=== PATIENT | female | born 1995 | race Caucasian/White ===

== ENCOUNTER 2021-07-14 12:07 | Emergency (ER) | payer OTHER, SELFPAY ==
[2021-07-14 12:48] VITALS: BP 143/72; PULSE 65; RESP 16; TEMP 36.6; O2SAT 98; BMI 22.6
[2021-07-14 14:31] LABS: Add Manual Diff / Slide Review NO; Basophils Absolute Auto 0 /uL (0-100); Basophils Percent Auto 0.2 % (0-2); Eosinophils Absolute Auto 0 /uL (0-450); Eosinophils Percent Auto 0.1 % (2-4); Hematocrit 40.4 % (36-46); Hemoglobin 13.6 g/dL (12.0-16.0); Lymphocytes Absolute Auto 800 /uL (1100-4500); Lymphocytes Percent Auto 6.5 % (25-40); Mean Corpuscular HGB Conc 33.7 % (30-36); Mean Corpuscular Hemoglobin 31.9 PG (26-34); Mean Corpuscular Volume 94.6 fL (80-100); Monocytes Absolute Auto 200 /uL (0-900); Monocytes Percent Auto 1.7 % (3-14); Neutrophils Absolute Auto 12000 /uL (1500-7000); Neutrophils Percent Auto 91.5 % (50-75); Platelet Count 290 X10^3/uL (150-400); Red Blood Cell Count 4.27 X10^6/uL (4.0-5.2); Red Cell Distribution Width 13.5 % (11.6-14.8); White Blood Cell Count 13.1 X10^3/uL (4.5-11.0)
[2021-07-14 14:33] LABS: Alanine Aminotransferase 53 IU/L (<35); Albumin 4.7 g/dL (3.5-5.0); Albumin Globulin Ratio 1.9 (1.0-2.8); Alkaline Phosphatase 55 U/L (38-126); Aspartate Aminotransferase 26 IU/L (14-36); BUN Creatinine Ratio 20.7 (6-22); Bilirubin Total 0.2 mg/dL (0.2-1.3); Blood Urea Nitrogen 19 mg/dL (7-17); C-Reactive Protein Quant < 0.5 mg/dL (<1.0); Calcium 9.2 mg/dL (8.4-10.2); Carbon Dioxide 32 mmol/L (22-32); Chloride 100 mmol/L (98-107); Estimated Glomerular Filt Rate > 60 mL/min (>60); Globulin 2.5 g/dL (1.7-4.1); Glucose 142 mg/dL (70-100); HEMOLYSIS < 15 (0-50); Potassium 4.6 mmol/L (3.4-5.1); Sodium 138 mmol/L (137-145); Total Protein 7.2 g/dL (6.3-8.2)
--- NOTE | 2021-07-14 14:47 | PC.NURSE ---
Pt c/o L arm heaviness/pain that traveled to her R arm as well. Was started on a 5 day predisone taper which did not improve her discomfort. Pt then developed sore spots all over her body. Hx of leukemia.
[2021-07-14 14:49] LABS: Erythrocyte Sedimentation Rate 2 MM/HR (0-20)
--- NOTE | 2021-07-14 15:09 | ED_ITS ---
HPI - Neck Pain/Injury <Jamia Ang, [facility] - Last Filed: 07/14/21 16:54> General Chief Complaint: Neck Pain/Injury Stated Complaint: NECK PAIN TINGLING OF HAND AND ARMS TIRED Time Seen by Provider: 07/14/21 14:42 Mode of arrival: Ambulatory History of Present Illness HPI Narrative: This is a 26-year-old female who presents to the emergency department complaining of left-sided neck pain for the last 3 weeks, peripheral neuropathy in all of her extremities, fatigue, depressed mood, and difficulty completing simple tasks like cold in her cellphone. Patient states that she stop taking Latuda 2 months ago cold turkey because she ran out and did not have a prescriber. She states that she still is taking Prozac 20 mg daily, she states that she has been to would be emergency department 2 times for this neck pain starting approximately 2 weeks ago. Patient states that her left-sided neck pain started on 06/27/2021 with neuropathy symptoms down into her fingertips from her neck. She went to [facility], was prescribed steroids for 5 days, and oxycodone with muscle relaxers. She states that it did not help much, she went back to the emergency department approximately 1 week later, received a another prescription of steroids, muscle relaxers, and morphine tablets without any other testing completed. Patient states that she has had 2 urine test this week for and they were both negative. Patient endorses a headache, she states she has a history of leukemia as a child, has not had any fever, chills, diaphoresis, abdominal pain, states that she threw up yesterday a.m. but no other vomiting. States that she had a negative COVID test at home, she denies any diarrhea, rash isolated pain in 1 area. Patient states that she feels depressed, she has a psychiatrist appointment on for July 23, 2021. Patie nt states she does not want to start taking Latuda again because she did not think it helped her. Patient has been using lidocaine patches which she states are the most helpful, taking morphine tabs, muscle relaxers, and states none of those have helped at all. Patient denies any lower extremity weakness, incontinence, dizziness, vision changes. Related Data Previous Rx's Medication Instructions Recorded diclofenac sodium 1 % topical gel 2 g TOPICAL QID #100 g 07/14/21 (Voltaren Arthritis Pain) gabapentin 300 mg capsule 600 mg PO TID 14 Days #84 caplet 07/14/21 lidocaine 5 % topical patch 1 patch TOPICAL BID PRN #15 ea 07/14/21 (Lidoderm) methocarbamol 750 mg tablet 750 mg PO Q8H PRN #20 tab 07/14/21 tramadol 50 mg tablet (Ultram) 50 mg PO BID PRN #20 tab 07/14/21 Allergies Allergy/AdvReac Type Severity Reaction Status Date / Time Penicillins Allergy Verified 07/14/21 12:53 Sulfa (Sulfonamide Allergy Verified 07/14/21 12:53 Antibiotics) vancomycin AdvReac Redness of Verified 07/14/21 12:53 Skin Review of Systems <MAGI Orosco - Last Filed: 07/14/21 16:54> Review of Systems Narrative: General: denies fever, chills, malaise, sweats, endorses daily and crippling fatigue Head/Neck: denies headache, neck pain, dizziness Eyes: denies visual changes, eye pain Cardio: denies chest pain, palpitations, edema Respiratory: denies dyspnea, cough, orthopnea GI: denies abdominal pain, nausea, vomiting, or diarrhea : denies dysuria, hematuria, urinary retention, frequency or incontinence MSK: denies joint pain, muscle weakness Skin: denies rash, itching, skin lesions or other Neuro: denies numbness, tingling Patient History <MAGI Orosco - Last Filed: 07/14/21 16:54> Social History Smoking Status: Current every day smoker Smoking Status: Current every day smoker alcohol intake frequency: a few times a week Substance Use Type: does not use Exam <MAGI Orosco - Last Filed: 07/14/21 16:54> Narrative Exam Narrative: Independently reviewed vitals signs and nursing notes. General: cooperative, comfortable, in no acute distress, well developed and well groomed Head: atraumatic, symmetrical facial expressions Neck: supple, atraumatic, without lymphadenopathy. Patient has left trapezius muscle tension to palpation, no rash, no masses no tenderness over C-spine Eyes: pupils equal round and reactive, EOMI, conjunctiva normal Nose: nares patent, no rhinorrhea Mouth/Throat: uvula midline, moist mucus membranes Cardiovascular: regular rate and rhythm, no peripheral edema, warm extremities Respiratory: normal effort, able to speak in complete sentences, no audible wheezing, stridor, or rales. No retractions or tachypnea. GI: abdomen soft, nontender to palpation, nondistended, no masses, no exquisite tenderness with exam, without guarding or rebound. MSK: moves all extremities, ambulatory w/steady gait, neurovascularly intact, no weakness Skin: brisk capillary refill, no rash, no erythema Neuro: normal speech and cognition, A&O x3, normal tone Psych: mental status is grossly normal, congruent mood, normal affect, pleasant and cooperative Initial Vital Signs Initial Vital Signs: Vital Signs Temperature 98 F 07/14/21 12:48 Pulse Rate 65 07/14/21 12:48 Respiratory Rate 16 07/14/21 12:48 Blood Pressure 143/72 H 07/14/21 12:48 Pulse Oximetry 98 07/14/21 12:48 <Dina Rosa DO - Last Filed: 07/15/21 07:17> Initial Vital Signs Initial Vital Signs: Vital Signs Temperature 98 F 07/14/21 12:48 Pulse Rate 65 07/14/21 12:48 Respiratory Rate 16 07/14/21 12:48 Blood Pressure 143/72 H 07/14/21 12:48 Pulse Oximetry 98 07/14/21 12:48 Course <MAGI Orosco - Last Filed: 07/14/21 16:54> Orders Ordered: Discontinued Medications Acetaminophen (Acetaminophen 325 Mg Tablet) 975 mg PO NOW ONE Stop: 07/14/21 15:19 Last Admin: 07/14/21 15:36 Dose: 975 mg Documented by: JOSHUA Gabapentin (Gabapentin 300 Mg Capsule) 300 mg PO NOW ONE Stop: 07/14/21 15:19 Last Admin: 07/14/21 15:36 Dose: 300 mg Documented by: JOSHUA Ketorolac Tromethamine (Ketorolac 30 Mg/Ml Vial) 15 mg IM NOW ONE Stop: 07/14/21 16:31 Last Admin: 07/14/21 16:39 Dose: 15 mg Documented by: JOSHUA Lidocaine (Lidocaine Patch 1 Each Adh..Patch) 1 each TOP NOW ONE Stop: 07/14/21 15:19 Last Admin: 07/14/21 15:37 Dose: 1 each Documented by: JOSHUA Methocarbamol (Methocarbamol 500 Mg Tablet) 750 mg PO NOW ONE Stop: 07/14/21 16:31 Last Admin: 07/14/21 16:40 Dose: 750 mg Documented by: JOSHUA Oxycodone/Acetaminophen (Oxycodone/Acetaminophen 5/325 Tablet) 1 tab PO NOW ONE Stop: 07/14/21 16:32 Last Admin: 07/14/21 16:41 Dose: 1 tab Documented by: JOSHUA Vital Signs Vital signs: Vital Signs - 8 hr 07/14/21 12:48 Temperature 98 F Pulse Rate 65 Respiratory Rate 16 Blood Pressure 143/72 H Pulse Oximetry 98 <Dina Rosa DO - Last Filed: 07/15/21 07:17> Orders Ordered: Discontinued Medications Acetaminophen (Acetaminophen 325 Mg Tablet) 975 mg PO NOW ONE Stop: 07/14/21 15:19 Last Admin: 07/14/21 15:36 Dose: 975 mg Documented by: JOSHUA Gabapentin (Gabapentin 300 Mg Capsule) 300 mg PO NOW ONE Stop: 07/14/21 15:19 Last Admin: 07/14/21 15:36 Dose: 300 mg Documented by: JOSHUA Ketorolac Tromethamine (Ketorolac 30 Mg/Ml Vial) 15 mg IM NOW ONE Stop: 07/14/21 16:31 Last Admin: 07/14/21 16:39 Dose: 15 mg Documented by: JOSHUA Lidocaine (Lidocaine Patch 1 Each Adh..Patch) 1 each TOP NOW ONE Stop: 07/14/21 15:19 Last Admin: 07/14/21 15:37 Dose: 1 each Documented by: JOSHUA Methocarbamol (Methocarbamol 500 Mg Tablet) 750 mg PO NOW ONE Stop: 07/14/21 16:31 Last Admin: 07/14/21 16:40 Dose: 750 mg Documented by: JOSHUA Oxycodone/Acetaminophen (Oxycodone/Acetaminophen 5/325 Tablet) 1 tab PO NOW ONE Stop: 07/14/21 16:32 Last Admin: 07/14/21 16:41 Dose: 1 tab Documented by: JOSHUA Vital Signs Vital signs: Vital Signs - 8 hr 07/14/21 12:48 Temperature 98 F Pulse Rate 65 Respiratory Rate 16 Blood Pressure 143/72 H Pulse Oximetry 98 MDM - Neck Pain/Injury <MAGI Orosco - Last Filed: 07/14/21 16:54> Lab Data Result diagrams: 07/14/21 14:12 07/14/21 14:12 Labs: Lab Results 07/14/21 07/14/21 07/14/21 Range/Units 14:12 14:12 16:24 WBC 13.1 H (4.5-11.0) X10^3/uL RBC 4.27 (4.0-5.2) X10^6/uL Hgb 13.6 (12.0-16.0) g/dL Hct 40.4 (36-46) % MCV 94.6 (80-100) fL MCH 31.9 (26-34) PG MCHC 33.7 (30-36) % RDW 13.5 (11.6-14.8) % Plt Count 290 (150-400) X10^3/uL Neut % (Auto) 91.5 H (50-75) % Lymph % (Auto) 6.5 L (25-40) % [place] % (Auto) 1.7 L (3-14) % Eos % (Auto) 0.1 L (2-4) % Baso % (Auto) 0.2 (0-2) % Neut # (Auto) 96837 H (8450-0178) /uL Lymph # (Auto) 800 L (3434-5057) /uL [place] # (Auto) 200 (0-900) /uL Eos # (Auto) 0 (0-450) /uL Baso # (Auto) 0 (0-100) /uL ESR 2 (0-20) MM/HR Sodium 138 (137-145) mmol/L Potassium 4.6 (3.4-5.1) mmol/L Chloride 100 (98-107) mmol/L Carbon Dioxide 32 (22-32) mmol/L BUN 19 H (7-17) mg/dL Creatinine 0.92 (0.52-1.04) mg/dL Estimated GFR > 60 (>60) mL/min BUN/Creatinine Ratio 20.7 (6-22) Glucose 142 H (70-100) mg/dL Calcium 9.2 (8.4-10.2) mg/dL Total Bilirubin 0.2 (0.2-1.3) mg/dL AST 26 (14-36) IU/L ALT 53 H (<35) IU/L Alkaline Phosphatase 55 (38-126) U/L C-Reactive Protein < 0.5 (<1.0) mg/dL Total Protein 7.2 (6.3-8.2) g/dL Albumin 4.7 (3.5-5.0) g/dL Globulin 2.5 (1.7-4.1) g/dL Albumin/Globulin Ratio 1.9 (1.0-2.8) Urine Color Yellow Urine Appearance Cloudy Urine pH 7.5 (4.5-8.0) Ur Specific Nelson 1.015 (1.000-1.035) Urine Protein Negative (Negative) Urine Glucose (UA) Negative (Negative) g/dL Urine Ketones Negative (NEGATIVE) Urine Occult Blood Trace-lysed (Negative) Urine Nitrate Negative (Negative) Urine Bilirubin Negative (NEGATIVE) Urine Urobilinogen 0.2 (0.2) E.U./dL Ur Leukocyte Esterase Negative (NEGATIVE) Urine RBC 0-1/hpf (0-5/HPF) Urine WBC 0-1/hpf (0-5/HPF) Ur Squamous Epith Cells 0-1 /hpf (0-5/HPF) Amorphous Sediment 4+ Urine Bacteria None seen (None) Ur Culture Indicated? Culture not indicate Point of Care Testing Test Results Negative Urine Dip Bedside Urine Glucose Negative Bedside Urine Bilirubin - Negative Bedside Urine Ketone - Negative Urine Specific Nelson 1.010 Bedside Urine Occult Blood - Negative Bedside Urine pH 7.5 Bedside Urine Protein - Negative Bedside Urine Urobilinogen - Negative Bedside Urine Nitrite - Negative Bedside Urine Leukocytes - Negative Esterase Imaging Data CT scan - head: Radiologist's Impression: PROCEDURE:? CT HEAD/BRAIN WO CON ? INDICATIONS:? head and neck pain x3 weeks ? TECHNIQUE:? Noncontrast 4.5 mm thick angled axial sections acquired from the foramen magnum to the vertex, with coronal and sagittal reformats.? For radiation dose reduction, the following was used:? automated exposure control, adjustment of mA and/or kV according to patient size.? ? COMPARISON:? None. ? FINDINGS:? Image quality:? Excellent.? ? CSF spaces:? Basal cisterns are patent.? No extra-axial fluid collections.? Ventricles are normal in size and shape.? ? Brain:? No midline shift.? No intracranial masses or hemorrhage.? Norris-white matter interface is normal.? ? Skull and face:? Calvarium and visualized facial bones are intact, without suspicious lesions.? ? Sinuses:? Visualized sinuses and mastoids are clear.? ? IMPRESSION:? ? 1. No acute intracranial abnormalities. ? ? Dictated by: Suresh Boyd M.D. on 07/14/2021 at 14:58 ? ? Approved by: Suresh Boyd M.D. on 07/14/2021 at 14:59 ? CT - cervical spine: Radiologist's Impression: PROCEDURE:? CT CERVICAL SPINE WO CON ? INDICATIONS:? head and neck pain x3 weeks ? TECHNIQUE:? Noncontrast 3 mm thick sections acquired from the skull base to the T4 level.? Sagittal and coronal reformats were then constructed.? For radiation dose reduction, the following was used:? automated exposure control, adjustment of mA and/or kV according to patient size.? ? COMPARISON:? None. ? FINDINGS:? Image quality:? Excellent.? ? Bones:? No fractures or dislocations.? There is loss of normal cervical lordosis .? Visualized superior ribs are intact.? ? Soft tissues:? Prevertebral soft tissues are normal in thickness.? No paravertebral hematomas.? No apical pneumothoraces.? ? ? IMPRESSION:? Loss of normal cervical lordosis.? No fracture. ? ? Dictated by: Suresh Boyd M.D. on 07/14/2021 at 15:00 ? ? Approved by: Suresh Boyd M.D. on 07/14/2021 at 15:05 ? MDM Narrative Medical decision making narrative: This is a 26-year-old female with 5 children, history of anxiety, depression, pancreatitis, and leukemia who presents to the emergency department complaining of 3 weeks of left-sided neck pain, neuropathy, fatigue, multiple locations of pain, and has tried opiates, muscle relaxers, lidocaine patches, incident Tylenol and states none of that was very helpful. Patient endorses lidocaine patches as being the most helpful. She states she stopped taking Latuda cold turkey 2 months ago, she is on 20 mg of Prozac daily, has been using all these medications for this neck pain and neuropathy without any improvement in her symptoms. She has been afebrile, completed 2 courses of steroids, this is likely contributing to her mild leukocytosis of 13.1. CRP and ESR were not elevated, patient states that lidocaine patches were the most helpful in she already has opiates and muscle relaxers at home but when she was offered Tylenol, gabapentin, and a lidocaine patch in the emergency department she declined and states that we are not doing anything for her. Or there was a mutual decision making between patient and myself to start her on gabapentin until she sees her psychiatrist in 9 days to help treat her for her likely fibromyalgia symptoms. Opted to rule out tumor or fracture with a CT brain/head/C-spine. CT head shows no acute intracranial abnormality, CT C-spine shows loss of cervical lordosis without any stenosis or acute abnormality. is negative, CRP ESR are not elevated. UA shows a trace of blood, pat ient states she is on her menses. No leukocytes, bacteria, or nitrites. Discussion patient her symptoms, she states that she is out muscle relaxers, states that the morphine was too strong for her, she had some relief from lidocaine patches a little from oxycodone. She was given Toradol, methocarb jarett, Percocet, lidocaine patch for her pain today. She requested a prescription for something less strong and was given tramadol, gabapentin, lidocaine patches, Voltaren gel, and Robaxin. Encourage patient to stay active, use the medications as needed, in addition to Tylenol and ibuprofen, heat and ice is safe, if she develops any worsening of her symptoms, weakness, vision changes, inability to turn her head, to return to the emergency department for another evaluation. Headache considerations include, but not limited to: Subarachnoid hemorrhage, but unlikely as patient denies sudden onset of pain, not worst of life, or neck pain, CT ruled this out. Meningitis considered, but thought unlikely given lack of Brudzinski's, Kernig's sign, altered mental status or fever. Giant cell arteritis considered, but thought unlikely given lack of unilateral findings, pain in jehovah's witness, vision change HTN Emergency considered, but thought unlikely given normal vitals Other serious diagnoses considered unlikely given lack of red flag findings such as sudden onset, increasing frequency, immunocompromise, systemic signs (fever, chills, stiff neck, or rash), focal neurologic findings, trauma, blood thinners, etc. Patient is appropriate and amenable to discharge home. Vital signs are stable on repeat examination is unremarkable. Patient has been informed of results. Patient has been given strict return to ER precautions for any new or worsening symptoms. Patient understands to follow up closely with outpatient providers as instructed. Patient understands plan and agrees to discharge home. All questions and concerns answered at this time. <Dina Rosa DO - Last Filed: 07/15/21 07:17> Lab Data Labs: Lab Results 07/14/21 07/14/21 07/14/21 Range/Units 14:12 14:12 16:24 WBC 13.1 H (4.5-11.0) X10^3/uL RBC 4.27 (4.0-5.2) X10^6/uL Hgb 13.6 (12.0-16.0) g/dL Hct 40.4 (36-46) % MCV 94.6 (80-100) fL MCH 31.9 (26-34) PG MCHC 33.7 (30-36) % RDW 13.5 (11.6-14.8) % Plt Count 290 (150-400) X10^3/uL Neut % (Auto) 91.5 H (50-75) % Lymph % (Auto) 6.5 L (25-40) % [place] % (Auto) 1.7 L (3-14) % Eos % (Auto) 0.1 L (2-4) % Baso % (Auto) 0.2 (0-2) % Neut # (Auto) 37455 H (0631-2178) /uL Lymph # (Auto) 800 L (9053-9077) /uL [place] # (Auto) 200 (0-900) /uL Eos # (Auto) 0 (0-450) /uL Baso # (Auto) 0 (0-100) /uL ESR 2 (0-20) MM/HR Sodium 138 (137-145) mmol/L Potassium 4.6 (3.4-5.1) mmol/L Chloride 100 (98-107) mmol/L Carbon Dioxide 32 (22-32) mmol/L BUN 19 H (7-17) mg/dL Creatinine 0.92 (0.52-1.04) mg/dL Estimated GFR > 60 (>60) mL/min BUN/Creatinine Ratio 20.7 (6-22) Glucose 142 H (70-100) mg/dL Calcium 9.2 (8.4-10.2) mg/dL Total Bilirubin 0.2 (0.2-1.3) mg/dL AST 26 (14-36) IU/L ALT 53 H (<35) IU/L Alkaline Phosphatase 55 (38-126) U/L C-Reactive Protein < 0.5 (<1.0) mg/dL Total Protein 7.2 (6.3-8.2) g/dL Albumin 4.7 (3.5-5.0) g/dL Globulin 2.5 (1.7-4.1) g/dL Albumin/Globulin Ratio 1.9 (1.0-2.8) Urine Color Yellow Urine Appearance Cloudy Urine pH 7.5 (4.5-8.0) Ur Specific [place] 1.015 (1.000-1.035) Urine Protein Negative (Negative) Urine Glucose (UA) Negative (Negative) g/dL Urine Ketones Negative (NEGATIVE) Urine Occult Blood Trace-lysed (Negative) Urine Nitrate Negative (Negative) Urine Bilirubin Negative (NEGATIVE) Urine Urobilinogen 0.2 (0.2) E.U./dL Ur Leukocyte Esterase Negative (NEGATIVE) Urine RBC 0-1/hpf (0-5/HPF) Urine WBC 0-1/hpf (0-5/HPF) Ur Squamous Epith Cells 0-1 /hpf (0-5/HPF) Amorphous Sediment 4+ Urine Bacteria None seen (None) Ur Culture Indicated? Culture not indicate Point of Care Testing Test Results Negative Urine Dip Bedside Urine Glucose Negative Bedside Urine Bilirubin - Negative Bedside Urine Ketone - Negative Urine Specific [place] 1.010 Bedside Urine Occult Blood - Negative Bedside Urine pH 7.5 Bedside Urine Protein - Negative Bedside Urine Urobilinogen - Negative Bedside Urine Nitrite - Negative Bedside Urine Leukocytes - Negative Esterase Discharge Plan Departure Patient Disposition: Home Clinical Impression: Acute neck pain, Fatigue Peripheral neuropathy Qualifiers: Peripheral neuropathy type: polyneuropathy, unspecified Qualified Code(s): G62.9 - Polyneuropathy, unspecified Instructions: Fibromyalgia (Alternative Therapy), Complex Regional Pain Syndrome, DI for Neck Pain Activity Restrictions/Additional Instructions: *You have been diagnosed with pain in multiple locations, fatigue, insomnia, cognitive dysfunction, and peripheral neuropathy. These are all symptoms of fibromyalgia which is stemming from undertreated neurochemicals your brain. This is treated with multi modalities including SSRIs, complementary therapies like exercise, yoga, acupuncture, talk therapy, and first line medications include prozac and gabapentin if not improved on prozac. Your CT brain shows no acute intracranial abnormality, your CT of your cervical spine shows loss of normal cervical curvature but no fracture, stenosis, masses, and soft tissues are all normal without suspicion for abnormality. Great news! Please see how the gabapentin helps your pain, there are other interventions like cognitive behavioral therapy, other oral medications which may work for you, and there is no evidence that opioids are effective treatment of this. Evidence suggests that opiates have adverse effects on chronic pain syndromes. Please try and stay active as your body allows, this will help release Endocannabinoids which will treat your pain from your brain. I wish you the best, please go to your appointment on July 23, follow-up with your primary care provider for a referral to physical therapy and /or advanced imaging if you continue to have symptoms. Please follow-up with a specialist before changing medications or stopping them altogether. Please continue taking the Prozac as you are, take ibuprofen or Tylenol with food and water as needed for your pain, muscle relaxers as necessary for muscle spasms. Please use heat, light activity , stay hydrated, eat food with ibuprofen so that you do not get an ulcer. I wish you the best with your follow-up. *What to do: *Please continue to take your regular medications as directed. [ x] New medication prescriptions sent to your pharmacy: [ [facility]] [ ] New medication written as a paper prescription [ ] No new medications given *Please follow up with your primary care provider in 2-3 days, call for an appointment. Let them know you were seen in the Emergency Department and that we asked that you be seen for follow-up. We will electronically transmit a record of today's note if your PCP is in our system *If you do not have a primary care provider please contact [phone] to establish care with one of the [facility] primary care providers. *Return to Emergency Department if you should have any new, worsening or concerning symptoms, such as [fever greater than 101F, chills, worsening pain, persistent vomiting or other bothersome symptoms] Prescriptions: New gabapentin 300 mg capsule 600 mg PO TID 14 Days Qty: 84 0RF diclofenac sodium [Voltaren Arthritis Pain] 1 % gel 2 g topical QID Qty: 100 0RF Rx Instructions: apply to single elbow, wrist or hand; for hand includes palm/fingers/back of hand lidocaine [Lidoderm] 5 % adhesive patch,medicated 1 patch topical BID PRN (Reason: pain) Qty: 15 0RF Rx Instructions: leave on most painful area for up to 12 hrs tramadol [Ultram] 50 mg tablet 50 mg PO BID PRN (Reason: pain) Qty: 20 0RF methocarbamol 750 mg tablet 750 mg PO Q8H PRN (Reason: muscle spasm, insomnia) Qty: 20 0RF Referrals: Lazaro Martin MD [Physician] - <Dina Rosa DO - Last Filed: 07/15/21 07:17> Cosign ED Attending Jazature Attestation: I was immediately available in the department for consultation. Documentation has been reviewed. I agree with assessment and plan.
--- NOTE | 2021-07-14 15:33 | DI.CT.S_ITS ---
PROCEDURE: CT HEAD/BRAIN WO CON INDICATIONS: head and neck pain x3 weeks TECHNIQUE: Noncontrast 4.5 mm thick angled axial sections acquired from the foramen magnum to the vertex, with coronal and sagittal reformats. For radiation dose reduction, the following was used: automated exposure control, adjustment of mA and/or kV according to patient size. COMPARISON: None. FINDINGS: Image quality: Excellent. CSF spaces: Basal cisterns are patent. No extra-axial fluid collections. Ventricles are normal in size and shape. Brain: No midline shift. No intracranial masses or hemorrhage. Norris-white matter interface is normal. Skull and face: Calvarium and visualized facial bones are intact, without suspicious lesions. Sinuses: Visualized sinuses and mastoids are clear. IMPRESSION: 1. No acute intracranial abnormalities. Dictated by: Suresh Boyd M.D. on 07/14/2021 at 14:58 Approved by: Suresh Boyd M.D. on 07/14/2021 at 14:59
--- NOTE | 2021-07-14 15:33 | DI.CT.S_ITS ---
PROCEDURE: CT CERVICAL SPINE WO CON INDICATIONS: head and neck pain x3 weeks TECHNIQUE: Noncontrast 3 mm thick sections acquired from the skull base to the T4 level. Sagittal and coronal reformats were then constructed. For radiation dose reduction, the following was used: automated exposure control, adjustment of mA and/or kV according to patient size. COMPARISON: None. FINDINGS: Image quality: Excellent. Bones: No fractures or dislocations. There is loss of normal cervical lordosis. Visualized superior ribs are intact. Soft tissues: Prevertebral soft tissues are normal in thickness. No paravertebral hematomas. No apical pneumothoraces. IMPRESSION: Loss of normal cervical lordosis. No fracture. Dictated by: Suresh Boyd M.D. on 07/14/2021 at 15:00 Approved by: Suresh Boyd M.D. on 07/14/2021 at 15:05
[2021-07-14] MEDS: ACETAMINOPHEN 325 MG TABLET 975 MG PO (15:36)
[2021-07-14] MEDS: GABAPENTIN 300 MG CAPSULE PO (15:36)
[2021-07-14] MEDS: LIDOCAINE PATCH 1 EACH ADH..PATCH TOP (15:37)
--- NOTE | 2021-07-14 15:40 | PC.NURSE ---
Pt offered lidocaine patch, tylenol, and gabapentin per order; pt expressed dismay that she's tried these medications and is still having severe pain all over. Care discussed with CLIENT TECHNOLOGIES ANALYST Crew; CT head and neck ordered. Pt updated to plan of care, declined to rate her pain on pain scale. Pt took her medications and applied lidocaine patch to neck before ambulating to CT.
[2021-07-14 16:26] LABS: Appearance Urine UA CLOUDY; Bilirubin Urine UA NEGATIVE (NEGATIVE); Color Urine UA YELLOW; Glucose Urine UA NEGATIVE (Negative); Ketones Urine UA NEGATIVE (NEGATIVE); Leukocyte Esterase Urine UA NEGATIVE (NEGATIVE); Nitrite Urine UA NEGATIVE (Negative); Occult Blood Urine UA TRACE-LYSED (Negative); Protein Urine UA NEGATIVE (Negative); Specific Gravity Urine UA 1.015 (1.000-1.035); Urobilinogen Urine UA 0.2 E.U./dL (0.2)
[2021-07-14] MEDS: KETOROLAC 30 MG/ML VIAL 15 MG IM (16:39)
[2021-07-14] MEDS: methocarbamoL 500 MG TABLET 750 MG PO (16:40)
[2021-07-14] MEDS: OXYCODONE/ACETAMINOPHEN 5/325 TABLET 1 TAB PO (16:41)
[2021-07-14 16:51] LABS: pH Urine UA 7.5 (4.5-8.0)
[2021-07-14 16:52] VITALS: BP 116/59; PULSE 65; RESP 16; TEMP 37.1; O2SAT 96
[2021-07-14 16:53] LABS: Amorphous Sediment Urine 4+; Bacteria Urine None Seen; RBC Urine 0-1/HPF (0-5/HPF); Squamous Epithelial Cell Urine 0-1 /HPF (0-5/HPF); WBC Urine 0-1/HPF (0-5/HPF)
== END 2021-07-14 16:54 | disposition home or self-care (01) ==
PROVIDERS: Emergency Medicine; Emergency Provider Nurse Practitioner Critical Care Medicine
DX: M54.2 Cervicalgia (principal); G62.9 Polyneuropathy, unspecified; R53.83 Other fatigue
CPT/HCPCS: 70450; 72125; 80053; 81001; 81003; 81025; 85025; 85651; 86140; 87086; 96372; 99284; J1885

== ENCOUNTER 2022-04-12 17:42 | Emergency (ER) | payer OTHER, SELFPAY ==
--- NOTE | 2022-04-12 | DI.US.S_ITS ---
PROCEDURE: US ABDOMEN LIMITED INDICATIONS: SEVERE RUQ AND EPIGASTRIC PAIN TECHNIQUE: Real-time focused scanning was performed of the abdomen, with image documentation. COMPARISON: None. FINDINGS: No gallstones, gallbladder wall thickening, sonographic Lopez sign. Liver length of 13.5 cm. Unremarkable hepatic echotexture. No biliary ductal dilation. Visualized pancreas is unremarkable. Main portal vein patent with antegrade flow. Visualized IVC is patent. IMPRESSION: No gallstones or evidence of acute cholecystitis Dictated by: Octavio Faust M.D. on 04/12/2022 at 19:37 Approved by: Octavio Faust M.D. on 04/12/2022 at 19:38
[2022-04-12 17:50] VITALS: BP 140/73; PULSE 95; RESP 22; TEMP 37.5; O2SAT 100; BMI 24.2
[2022-04-12 18:11] LABS: Add Manual Diff / Slide Review NO; Basophils Absolute Auto 100 /uL (0-100); Basophils Percent Auto 0.8 % (0-2); Eosinophils Absolute Auto 1300 /uL (0-450); Eosinophils Percent Auto 15.9 % (2-4); Hematocrit 38.4 % (36-46); Hemoglobin 13.2 g/dL (12.0-16.0); Lymphocytes Absolute Auto 2400 /uL (1100-4500); Lymphocytes Percent Auto 29.4 % (25-40); Mean Corpuscular HGB Conc 34.3 % (30-36); Mean Corpuscular Hemoglobin 32.2 PG (26-34); Monocytes Absolute Auto 500 /uL (0-900); Monocytes Percent Auto 6.3 % (3-14); Neutrophils Absolute Auto 3900 /uL (1500-7000); Neutrophils Percent Auto 47.6 % (50-75); Platelet Count 237 X10^3/uL (150-400); Red Blood Cell Count 4.08 X10^6/uL (4.0-5.2); Red Cell Distribution Width 13.5 % (11.6-14.8); White Blood Cell Count 8.1 X10^3/uL (4.5-11.0)
[2022-04-12 18:21] LABS: Alanine Aminotransferase 21 IU/L (<35); Albumin 4.6 g/dL (3.5-5.0); Albumin Globulin Ratio 1.8 (1.0-2.8); Alkaline Phosphatase 47 U/L (38-126); Aspartate Aminotransferase 24 IU/L (14-36); BUN Creatinine Ratio 13.3 (6-22); Bilirubin Total 0.6 mg/dL (0.2-1.3); Blood Urea Nitrogen 10 mg/dL (7-17); Calcium 9.3 mg/dL (8.4-10.2); Carbon Dioxide 29 mmol/L (22-32); Chloride 100 mmol/L (98-107); Estimated Glomerular Filt Rate > 60 mL/min (>60); Globulin 2.6 g/dL (1.7-4.1); Glucose 99 mg/dL (70-100); HEMOLYSIS < 15 (0-50); Lipase 29 U/L (23-300); Potassium 3.6 mmol/L (3.4-5.1); Sodium 140 mmol/L (137-145); Total Protein 7.2 g/dL (6.3-8.2)
[2022-04-12] MEDS: SODIUM CHLORIDE 0.9% 1,000 ML 1000 ML IV (18:53)
[2022-04-12] MEDS: HYDROMORPHONE 0.5 MG INJ IV ×2 (18:53→20:20)
[2022-04-12] MEDS: ONDANSETRON 4 MG/2 ML INJ IV (18:55)
--- NOTE | 2022-04-12 18:59 | PC.NURSE ---
patient reports had a BM with mucous yesterday. Reports most bowel movements have been watery diarrhea with very little stool and highlighter yellow
--- NOTE | 2022-04-12 19:10 | ED_ITS ---
HPI - Abdominal Pain General Chief Complaint: Abdominal Pain Stated Complaint: Rt. side abd. pain/rib cage to back diarrhea Time Seen by Provider: 04/12/22 18:16 Source: patient Mode of arrival: Ambulatory History of Present Illness HPI narrative: 27-year-old female nonsmoker with history of ALL and pancreatitis presents with a chief complaint of severe epigastric and right-sided upper abdominal pain and rib pain that has been present since the week of March but gradually worsening. She denies any trauma or injury. She is had no fever but does admit to chills. She states the pain is worse when she moves, eats or takes a deep breath. She states she is not actually short of breath it just hurts when she moves or takes a deep breath. She is had no cough or hemoptysis. She states that she had been seen evaluated at an outside facility a few weeks ago and had a CT that showed no significant findings, however at the time she was having more lower abdominal pain. Records have been requested. Related Data Previous Rx's Medication Instructions Recorded hydrocodone 5 mg-acetaminophen 325 1 tab PO Q4-6H PRN pain #20 tabs 04/12/22 mg tablet hyoscyamine sulfate 0.125 mg tablet 0.125 mg PO BID-QID PRN dyspepsia 04/12/22 #20 tabs Allergies Allergy/AdvReac Type Severity Reaction Status Date / Time Penicillins Allergy Unknown Verified 04/12/22 17:57 Sulfa (Sulfonamide Allergy Unknown Verified 04/12/22 17:57 Antibiotics) vancomycin Allergy Unknown Verified 04/12/22 17:57 Review of Systems Review of Systems Narrative: GENERAL: See HPI HEENT: Denies sinus pain, ear pain, sore throat, difficulty swallowing, dizziness. RESPIRATORY: See HPI CARDIOVASCULAR: See HPI GASTROINTESTINAL: See HPI : Denies dysuria, frequency, incontinence, hematuria, urinary retention. MUSCULOSKELETAL: denies weakness, joint pain, or bony pain SKIN: Denies rash, skin lesions, or other NEUROLOGIC: Denies weakness, headache, numbness, change in speech, confusion, seizures, incoordination. PSYCHIATRIC: No concerning psychosocial issues. 12 point review of systems is negative except for those stated above Patient History Social History Smoking Status: Never smoker Smoking Status: Never smoker Substance Use Type: does not use Exam Narrative Exam Narrative: GENERAL: [27] year old patient appears stated age. Well-developed patient, in mild distress. Tearful, clearly uncomfortable, anxious HEAD: Atraumatic. Normocephalic. EYES: Pupils equal round and reactive. Extraocular motions intact. No scleral icterus. No injection or drainage. ENT: Nose without bleeding, purulent drainage. Throat without erythema, tonsil lar hypertrophy or exudate. Airway patent. NECK: Trachea midline. Non tender CARDIOVASCULAR: Regular rate and rhythm without murmurs, gallops, or rubs. RESPIRATORY: Clear to auscultation. Breath sounds equal bilaterally. No wheezes, rales, or rhonchi. GASTROINTESTINAL: Abdomen soft, non-tender, nondistended. EXTREMITIES: No edema or joint tenderness. BACK: Nontender without deformity or crepitance. No flank tenderness. NEURO: AOx3. SKIN: No rash or erythema of visible areas Initial Vital Signs Initial Vital Signs: Vital Signs Temperature 99.5 F 04/12/22 17:50 Pulse Rate 95 H 04/12/22 17:50 Respiratory Rate 22 04/12/22 17:50 Blood Pressure 140/73 04/12/22 17:50 Pulse Oximetry 100 04/12/22 17:50 Oxygen Delivery Method 04/12/22 17:50 Course Orders Ordered: ED Orders 04/12/22 19:13 CT abdomen pelvis w con Stat CT angio chest PE protocol Stat Discontinued Medications Hydrocodone Bitart/Acetaminophen (Hydrocodone/Acet 5/325 Prepack) 1 bottle MISC SEEINSTR ONE Stop: 04/12/22 21:22 Last Admin: 04/12/22 21:35 Dose: 1 bottle Documented By: OW Hydromorphone HCl (Hydromorphone 0.5 Mg Inj) 0.5 mg IV NOW ONE Stop: 04/12/22 18:25 Last Admin: 04/12/22 18:53 Dose: 0.5 mg Documented By: FLAmanda Hydromorphone HCl (Hydromorphone 0.5 Mg Inj) 0.5 mg IV NOW ONE Stop: 04/12/22 20:14 Last Admin: 04/12/22 20:20 Dose: 0.5 mg Documented By: AP Sodium Chloride (Normal Saline 0.9%) 1,000 mls @ 1,000 mls/hr IV BOLUS ONE Stop: 04/12/22 19:23 Last Infusion: 04/12/22 19:50 Dose: 0 mls/hr Documented By: Admin: 04/12/22 18:53 Dose: 1,000 mls/hr Documented By: BHAKTI Ondansetron HCl (Ondansetron 4 Mg/2 Ml Inj) 4 mg IV NOW PRN PRN Reason: Nausea And Vomiting Ondansetron HCl (Ondansetron 4 Mg/2 Ml Inj) 4 mg IV NOW ONE Stop: 04/12/22 18:25 Last Admin: 04/12/22 18:55 Dose: 4 mg Documented By: BHAKTI Reevaluation(s) Reevaluation #1: Significantly improved discomfort after above-stated therapies Vital Signs Vital signs: Vital Signs - 8 hr 04/12/22 20:01 Pulse Rate 61 Respiratory Rate 20 Blood Pressure 111/68 Pulse Oximetry 97 Oxygen Delivery Method Room Air MDM - Abdominal Pain Lab Data 04/12/22 18:03 04/12/22 18:03 Labs: Lab Results 04/12/22 04/12/22 04/12/22 Range/Units 18:03 18:03 18:03 WBC 8.1 (4.5-11.0) X10^3/uL RBC 4.08 (4.0-5.2) X10^6/uL Hgb 13.2 (12.0-16.0) g/dL Hct 38.4 (36-46) % MCV 94.0 (80-100) fL MCH 32.2 (26-34) PG MCHC 34.3 (30-36) % RDW 13.5 (11.6-14.8) % Plt Count 237 (150-400) X10^3/uL Neut % (Auto) 47.6 L (50-75) % Lymph % (Auto) 29.4 (25-40) % [place] % (Auto) 6.3 (3-14) % Eos % (Auto) 15.9 H (2-4) % Baso % (Auto) 0.8 (0-2) % Neut # (Auto) 3900 (3133-9793) /uL Lymph # (Auto) 2400 (6957-4670) /uL [place] # (Auto) 500 (0-900) /uL Eos # (Auto) 1300 H (0-450) /uL Baso # (Auto) 100 (0-100) /uL D-Dimer < 215 (<500) ng/ml Sodium 140 (137-145) mmol/L Potassium 3.6 (3.4-5.1) mmol/L Chloride 100 (98-107) mmol/L Carbon Dioxide 29 (22-32) mmol/L BUN 10 (7-17) mg/dL Creatinine 0.75 (0.52-1.04) mg/dL Estimated GFR > 60 (>60) mL/min BUN/Creatinine Ratio 13.3 (6-22) Glucose 99 (70-100) mg/dL Calcium 9.3 (8.4-10.2) mg/dL Total Bilirubin 0.6 (0.2-1.3) mg/dL AST 24 (14-36) IU/L ALT 21 (<35) IU/L Alkaline Phosphatase 47 (38-126) U/L Total Creatine Kinase (30-135) U/L CK-MB (CK-2) CK-MB (CK-2) Rel Index Troponin I (0.01-0.034) ng/mL NT-Pro-B Natriuret Pep (<125) pg/mL Total Protein 7.2 (6.3-8.2) g/dL Albumin 4.6 (3.5-5.0) g/dL Globulin 2.6 (1.7-4.1) g/dL Albumin/Globulin Ratio 1.8 (1.0-2.8) Lipase 29 (23-300) U/L Procalcitonin (<0.5) ng/mL Serum , Qual (Negative) 04/12/22 04/12/22 Range/Units 18:03 18:05 WBC (4.5-11.0) X10^3/uL RBC (4.0-5.2) X10^6/uL Hgb (12.0-16.0) g/dL Hct (36-46) % MCV (80-100) fL MCH (26-34) PG MCHC (30-36) % RDW (11.6-14.8) % Plt Count (150-400) X10^3/uL Neut % (Auto) (50-75) % Lymph % (Auto) (25-40) % [place] % (Auto) (3-14) % Eos % (Auto) (2-4) % Baso % (Auto) (0-2) % Neut # (Auto) (0289-8192) /uL Lymph # (Auto) (1743-8029) /uL [place] # (Auto) (0-900) /uL Eos # (Auto) (0-450) /uL Baso # (Auto) (0-100) /uL D-Dimer (<500) ng/ml Sodium (137-145) mmol/L Potassium (3.4-5.1) mmol/L Chloride (98-107) mmol/L Carbon Dioxide (22-32) mmol/L BUN (7-17) mg/dL Creatinine (0.52-1.04) mg/dL Estimated GFR (>60) mL/min BUN/Creatinine Ratio (6-22) Glucose (70-100) mg/dL Calcium (8.4-10.2) mg/dL Total Bilirubin (0.2-1.3) mg/dL AST (14-36) IU/L ALT (<35) IU/L Alkaline Phosphatase (38-126) U/L Total Creatine Kinase 62 (30-135) U/L CK-MB (CK-2) TNP CK-MB (CK-2) Rel Index TNP Troponin I < 0.012 (0.01-0.034) ng/mL NT-Pro-B Natriuret Pep 28 (<125) pg/mL Total Protein (6.3-8.2) g/dL Albumin (3.5-5.0) g/dL Globulin (1.7-4.1) g/dL Albumin/Globulin Ratio (1.0-2.8) Lipase (23-300) U/L Procalcitonin < 0.03 (<0.5) ng/mL Serum , Qual Negative (Negative) Point of care testing: Point of Care Testing Test Results Negative Urine Dip Bedside Urine Glucose Negative Bedside Urine Bilirubin - Negative Bedside Urine Ketone - Negative Urine Specific [place] 1.010 Bedside Urine Occult Blood - Negative Bedside Urine pH 6.5 Bedside Urine Protein - Negative Bedside Urine Urobilinogen - Negative Bedside Urine Nitrite - Negative Bedside Urine Leukocytes - Negative Esterase Imaging Data CT scan - chest: Radiologist's Impression: [address] [address] [address] Scan Report Signed Patient: Jose Khan MR#: [id number] : 1995 Acct:[id number] Age/Sex: 27 / F Date of Service: 04/12/22 Loc: ED Accession Number: [id number] ?? Procedure: CT angio chest PE protocol Ordering Provider: Sam Ricardo D.O. PROCEDURE:? CT ANGIO CHEST PE PROTOCOL ? INDICATIONS:? Shortness of breath, R side CP, hx ALL ? TECHNIQUE:? After the administration of intravenous contrast, 2 mm thick sections acquired from the pulmonary apices to the posterior costophrenic angles.? 3-dimensional maximum intensity projection (MIP) coronal and sagittal reformats were then acquired through the thorax.? For radiation dose reduction, the following was used:? automated exposure control, adjustment of mA and/or kV according to patient size.? ? COMPARISON:? None. ? FINDINGS:? Image quality:? Excellent.? ? Pulmonary arteries:? Pulmonary arteries are normal in size, and demonstrate no intraluminal filling defects to suggest central pulmonary embolism.? ? Lungs and pleura:? No consolidation, pleural effusion, pneumothorax.? Mild bronchial wall thickening present.? Nonspecific nodular foci within the trachea and right mainstem bronchus, probable airway secretions ? Mediastinum:? no? pericardial effusion.? No mediastinal or hilar adenopathy.? Thoracic aorta is normal in caliber and enhancement.? Esophagus is normal in caliber ? Bones and chest wall:? Multilevel degenerative change of the visualized spine.? No axillary or supraclavicular adenopathy.? ? Abdomen:? Visualized upper abdominal solid organs appear normal in the early arterial phase of enhancement.? ? IMPRESSION: No pulmonary embolism demonstrated. Bronchial wall thickening is present, nonspecific, could indicate a bronchitis. ? ? Dictated by: Octavio Faust M.D. on 04/12/2022 at 20:43 ? ? Approved by: Octavio Faust M.D. on 04/12/2022 at 20:54 ? CT scan - abdomen/pelvis: Radiologist's Impression: Jose Khan??27??F??1995 ? Allergy/Adv: Penicillins, Sulfa (Sulfonamide Antibiotics), vancomycin (More??) Close Chest CTA (Signed) Octavio Faust - 04/12/22 Abdomen/Pelvis CT (Signed) Octavio Faust - 04/12/22 Abdomen Ultrasound (Signed) Octavio Faust - 04/12/22 Launch?Image [address] [address] [address] Scan Report Signed Patient: Jose Khan MR#: [id number] : 1995 Acct:[id number] Age/Sex: 27 / F Date of Service: 04/12/22 Loc: ED Accession Number: [id number] ?? Procedure: CT abdomen pelvis w con Ordering Provider: Sam Ricardo D.O. PROCEDURE:? CT ABDOMEN PELVIS W CON ? INDICATIONS:? severe R sided and epigastric pain, R side Rib pain, no trau ? TECHNIQUE:? After the administration of intravenous contrast, axial sections acquired from the lung bases to the pubic symphysis.? Coronal and sagittal reformats were performed.? For radiation dose reduction, the following was used:? automated exposure control, adjustment of mA and/or kV according to patient size.? ? COMPARISON:? [facility], CT, CT ANGIO CHEST PE PROTOCOL, 04/12/2022, 19:32. ? FINDINGS:? Image quality:? Adequate.? ? Lung bases:? No pleural effusion ? ABDOMEN: Liver:? Unremarkable.? ? Gallbladder:? Unremarkable.? ? Biliary ducts:? Unremarkable.? ? Pancreas:? Unremarkable.? ? Spleen:? Unremarkable.? ? Adrenal Glands:? Unremarkable.? ? Kidneys and Ureters:? No hydronephrosis.? 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 Stomach and Bowel: no bowel obstruction or evidence of acute appendicitis Peritoneum:? No free air or substantial free fluid ? Abdominal Nodes:? No retroperitoneal or mesenteric adenopathy by size criteria.? Vessels:? Aorta and inferior vena cava are normal in size.? ? PELVIS: Pelvic Organs:? An IUD is present.? Uterus and ovaries are not well evaluated by CT. Bladder:? Unremarkable.? ? Pelvic Nodes: No enlarged lymph nodes.? ? Bones:? Unremarkable.? IMPRESSION:? No acute abnormality identified within the abdomen or pelvis. ? ? ? Dictated by: Octavio Faust M.D. on 04/12/2022 at 20:54 ? ? Approved by: Octavio Faust M.D. on 04/12/2022 at 21:03 ? MDM Narrative Medical decision making narrative: CC: 27-year-old female with history of ALL presents with right upper quadrant and right lateral rib pain Complicating co-morbidities: ALL, anxiety Data collected from: Patient Medical records reviewed: None available Differential considered, but not limited to: GB disease, MSK, liver disease, pneumonia, PE, vs. other Exam documented above, pertinent findings include: RUQ tender, clear lung sounds, no increased work of breathing Lab Test results independently reviewed as above. Pertinent findings: No significant findings such as leukocytosis, anemia, elevated bilirubin, lipase, LFTs Imaging studies independently reviewed: CTA for PE without PE or pneumonia, ABD/Pelvis without significant findings. US without gallbladder disease Treatments: fluids, zofran, dilaudid Re-evaluations: significant improvement Discussion: Patient with many weeks, perhaps a month of upper abdomen and right flank pain, worse with eating, drinking and deep breaths pain on exam. Her labs are very reassuring and imaging demonstrates no obvious gallbladder disease, pneumonia, pulmonary embolism, bowel abnormality. No skin eruption to suggest shingles. No lymphadenopathy or other abnormal findings on imaging. Patient has satisfactory response to above-stated therapies, she has pain well controlled, is tolerating orals, already has an appointment with GI Disposition: see below, along with detailed discharge instructions that have been reviewed with patient as well as indications for ED re-evaluation and additional outpatient follow up Discharge Plan Departure Patient Disposition: Home Clinical Impression: Abdominal pain Instructions: DI for Abdominal Pain-Adult Activity Restrictions/Additional Instructions: *You have been diagnosed with [abdominal pain] * As we discussed your history and physical exam as well as labs and imaging are very reassuring. There is no evidence of any severe diagnoses that would require a specific or immediate intervention. *What to do: *Please continue to take your regular medications as directed. [x ] New medication prescriptions sent to your pharmacy: [[facility] in [place] ] *Please follow up with your primary care provider in 2-3 days, call for an appointment. Let them know you were seen in the Emergency Department and that we ask that you be seen in follow up. We will electronically transmit a record of today's note if your PCP is in our system *Please consider a clear liquid diet for the next 24-48 hours and then slowly advance to regular as tolerated. Also, try to avoid alcohol, nicotine, caffeine, spicy, acidic or fatty foods as this may worsen your symptoms *If you do not have a primary care provider please contact the [facility] Resource line at [phone]. They will ask some questions about your medical history and help get you set up with a doctor in the community. *Return to Emergency Department if you should have any new, worsening or concerning symptoms, such as [fever greater than 101 F, shaking chills, worsening pain, persistent vomiting or other bothersome symptoms] You have been prescribed a short course of narcotic medications. These are potentially dangerous and addictive medications that should be used carefully. While on these medications you cannot drive or operate heavy machinery. Additionally, you cannot sign legal documents or perform any duties such as this . Many people get constipated on narcotic medications so it would be advisable to discuss stool softeners with the pharmacist when you bean picker your prescription. Please understand that we cannot provide further refills of narcotics or controlled substances through the ED and your pain management will need to be through your Primary Care Provider Prescriptions: New hydrocodone-acetaminophen 5-325 mg tablet 1 tab PO Q4-6H PRN (Reason: pain) Qty: 20 0RF hyoscyamine sulfate 0.125 mg tablet 0.125 mg PO BID-QID PRN (Reason: dyspepsia) Qty: 20 0RF Referrals: Dheeraj Herrrea MD [Non-Staff] - Lazaro Martin MD [Primary Care Provider] - Stand Alone Forms: Patient Portal/API
--- NOTE | 2022-04-12 19:13 | DI.CT.S_ITS ---
PROCEDURE: CT ABDOMEN PELVIS W CON INDICATIONS: severe R sided and epigastric pain, R side Rib pain, no trau TECHNIQUE: After the administration of intravenous contrast, axial sections acquired from the lung bases to the pubic symphysis. Coronal and sagittal reformats were performed. For radiation dose reduction, the following was used: automated exposure control, adjustment of mA and/or kV according to patient size. COMPARISON: [facility], CT, CT ANGIO CHEST PE PROTOCOL, 04/12/2022, 19:32. FINDINGS: Image quality: Adequate. Lung bases: No pleural effusion ABDOMEN: Liver: Unremarkable. Gallbladder: Unremarkable. Biliary ducts: Unremarkable. Pancreas: Unremarkable. Spleen: Unremarkable. Adrenal Glands: Unremarkable. Kidneys and Ureters: No hydronephrosis. 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 Vessels: Aorta and inferior vena cava are normal in size. PELVIS: Pelvic Organs: An IUD is present. Uterus and ovaries are not well evaluated by CT. Bladder: Unremarkable. Pelvic Nodes: No enlarged lymph nodes. Bones: Unremarkable. IMPRESSION: No acute abnormality identified within the abdomen or pelvis. Dictated by: Octavio Faust M.D. on 04/12/2022 at 20:54 Approved by: Octavio Faust M.D. on 04/12/2022 at 21:03
--- NOTE | 2022-04-12 19:13 | DI.CT.S_ITS ---
PROCEDURE: CT ANGIO CHEST PE PROTOCOL INDICATIONS: Shortness of breath, R side CP, hx ALL TECHNIQUE: After the administration of intravenous contrast, 2 mm thick sections acquired from the pulmonary apices to the posterior costophrenic angles. 3-dimensional maximum intensity projection (MIP) coronal and sagittal reformats were then acquired through the thorax. For radiation dose reduction, the following was used: automated exposure control, adjustment of mA and/or kV according to patient size. COMPARISON: None. FINDINGS: Image quality: Excellent. Pulmonary arteries: Pulmonary arteries are normal in size, and demonstrate no intraluminal filling defects to suggest central pulmonary embolism. Lungs and pleura: No consolidation, pleural effusion, pneumothorax. Mild bronchial wall thickening present. Nonspecific nodular foci within the trachea and right mainstem bronchus, probable airway secretions Mediastinum: no pericardial effusion. No mediastinal or hilar adenopathy. Thoracic aorta is normal in caliber and enhancement. Esophagus is normal in caliber Bones and chest wall: Multilevel degenerative change of the visualized spine. No axillary or supraclavicular adenopathy. Abdomen: Visualized upper abdominal solid organs appear normal in the early arterial phase of enhancement. IMPRESSION: No pulmonary embolism demonstrated. Bronchial wall thickening is present, nonspecific, could indicate a bronchitis. Dictated by: Octavio Faust M.D. on 04/12/2022 at 20:43 Approved by: Octavio Faust M.D. on 04/12/2022 at 20:54
[2022-04-12 19:44] VITALS: BP 118/77; PULSE 65; RESP 20; O2SAT 99
[2022-04-12 19:53] LABS: D Dimer < 215 ng/ml (<500)
[2022-04-12 20:01] VITALS: BP 111/68; PULSE 61; RESP 20; O2SAT 97
[2022-04-12 20:03] LABS: Creatine Kinase 62 U/L (30-135)
[2022-04-12 20:15] LABS: Pregnancy Test Serum,Qual Negative (Negative)
[2022-04-12 20:16] LABS: NT-proBNP (BNP-Adult 18+) 28 pg/mL (<125); Troponin I < 0.012 ng/mL (0.01-0.034)
[2022-04-12 20:21] LABS: Procalcitonin < 0.03 ng/mL (<0.5)
[2022-04-12] MEDS: HYDROCODONE/ACET 5/325 PREPACK 1 BOTTLE MISC (21:35)
== END 2022-04-12 21:35 | disposition home or self-care (01) ==
PROVIDERS: Emergency Medicine; Emergency Provider Emergency Medicine; PCP Family Medicine
DX: R10.13 Epigastric pain (principal); R07.81 Pleurodynia; R06.02 Shortness of breath
CPT/HCPCS: 36415; 71275; 74177; 76705; 80053; 81003; 81025; 82550; 83690; 83880; 84145; 84484; 84703; 85025; 85379; 96361; 96374; 96375; 96376; 99284; J1170; J2405; Q9967

== ENCOUNTER → 2023-10-21 09:32 | Outpatient (CLI) | payer OTHER, SELFPAY ==
[2023-10-22 13:41] LABS: Candida species Negative (Negative); Gardnerella vaginalis Negative (Negative); Trichomoas vaginalis Negative (Negative)
[2023-10-25 22:36] LABS: Chlamydia trachomatis Negative (Negative); Mycoplasma genitalium Negative (Negative); Neisseria gonorrhoeae Negative (Negative)
== END ==
PROVIDERS: PCP Family Medicine; Referring Provider Obstetrics & Gynecology; Visit Provider Obstetrics & Gynecology
DX: R10.2 Pelvic and perineal pain (principal)
CPT/HCPCS: 87480; 87491; 87510; 87563; 87591; 87660

== ENCOUNTER 2023-12-12 13:33 | Day surgery (SDC) | payer OTHER, SELFPAY ==
[2023-12-08 14:49] VITALS: BMI 25.0
--- NOTE | 2023-12-12 | PATH_ITS ---
[facility] Accession Number: [id number] No. of containers..01 Tissue . 01 Material submitted: . fallopian tube - BILATERAL FALLOPIAN TUBES . 01 Diagnosis: BILATERAL FALLOPIAN TUBES, BILATERAL SALPINGECTOMIES: Bilateral fallopian tubes with mild chronic inflammation and changes secondary to chronic salpingitis. Negative for atypia and malignancy. MRV 12/14/2023 1341 Local . 01 Electronically signed: . Francia Laird MD, Pathologist NPI- [id number] . 01 Gross description: . Received in formalin with two patient identifiers and bilateral fallopian tubes are two unoriented, fimbriated fallopian tubes (5.9 x 0.7 cm and 4.6 x 0.9 cm). Both tubes have violaceous smooth serosa with no cysts identified, and the lumens are stellate and unremarkable. Windows Admin sections to include one-half of bisected fimbriae and cross sections are submitted as follows: . A1: Longer fallopian tube. A2: Inman fallopian tube. ([id number]) /MRV 12/13/2023 1740 Local . 01 Pathologist provided ICD-10: N70.11, Z30.430, Z30.2 . 01 CPT . 984592 Specimen Comment: A courtesy copy of this report has been sent to [facility] Performed at: [address] [address], [place], [place] [id number] MD Jaun Irby MD Phone: [phone]
[2023-12-12 13:57] VITALS: BP 114/70; PULSE 85; RESP 16; TEMP 36.7; O2SAT 98; BMI 25.0
--- NOTE | 2023-12-12 14:07 | PM.GYNHP.1 ---
History of Present Illness History of Present Illness Reason for admission: pelvic pain and other (R hydrosalpinx, undesired fertility, remove/replace mirena IUD ) Narrative: Jose Khan is a 28 year old female who presents for scheduled laparoscopic procedure. Patient last seen in office 10/21/23 with identification of symptomatic R hydrosalpinx. Patient additionally disclosed undesired fertility with desired permanent surgical sterilization, removal and replacement of mirena IUD with return of cyclic bleeding near expiration date. Patient affirms desire to proceed with procedure as scheduled, denies significant changes in personal or family health history since time of last encounter. 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 IUD (intrauterine device) in place Hydrosalpinx Social History (System 09/20/23 @ 10:32 by Herbie Nguyen) household members: spouse Smoking Status: Current every day smoker Meds Home Medications and Allergies Home Medications Medication Instructions Recorded Confirmed Type clonazepam 1 mg tablet 1 mg PO 4XD PRN Anxiety 10/21/23 12/12/23 History lamotrigine 100 mg tablet 50 mg PO BEDTIME 10/21/23 12/12/23 History risperidone 2 mg tablet 4 mg PO ONCE PM 10/21/23 12/12/23 History topiramate 50 mg tablet 100 mg PO BID 10/21/23 12/12/23 History trazodone 50 mg tablet 50 - 150 mg PO ONCE PM PRN Pain 10/21/23 12/12/23 History (Scale Score 4-6) rimegepant 75 mg disintegrating 75 mg PO PRN PRN Headache 12/12/23 12/12/23 History tablet (Nurtec ODT) Allergies Allergy/AdvReac Type Severity Reaction Status Date / Time Penicillins Allergy Unknown Verified 10/21/23 08:58 Sulfa (Sulfonamide Allergy Unknown Verified 10/21/23 08:58 Antibiotics) vancomycin Allergy Unknown Verified 10/21/23 08:58 morphine AdvReac Unknown sensitivit Verified 12/12/23 14:04 y Review of Systems Review of Systems ROS: Yes All systems reviewed with the patient and are negative except as otherwise documented Exam Const General: cooperative and comfortable Nutritional Appearance: average body habitus Orientation: alert, awake and oriented x3 Limitations: mental status not altered HENMT Head: normal to inspection Resp Effort & Inspection: normal respiratory effort and able to speak in complete sentences Cardio Pulses: normal peripheral pulses Other: deferred Skin General: no rashes or lesions noted Neuro General: patient alert, patient awake and patient oriented x3 Extrem General: normal to inspection Psych Mental Status: mental status grossly normal Judgment: judgment good Assessment & Plan Assessment and plan (1) Request for sterilization: Status: Acute (2) Hydrosalpinx: Status: Acute (3) IUD (intrauterine device) in place: Status: Acute Plan 28yo female presents for scheduled outpatient laparoscopic procedure, bilateral salpingectomy with removal/replacement of mirena IUD secondary to symptomatic R hydrosalpinx, undesired future fertility/desired permanent surgical sterilization, return of cyclic bleeding with current IUD near expiration Patient affirms desire to proceed with procedure as scheduled anticipated postoperative course reviewed routine f/u in office as scheduled dispo: to OR Time-Based Coding :: [TOTAL MINUTES] spent with patient and on the chart (including review of chart, obtaining history, exam, reviewing outside data, placing orders, documenting exam and treatment plan, and counseling patient) on [DATE].
[2023-12-12] MEDS: LACTATED RINGERS 1,000 ML 42 ML IV (14:11)
--- NOTE | 2023-12-12 14:11 | PM.PREOP ---
Pre-operative Note Interval Note History & Physical reviewed/Exam performed by Physician: Yes Changes to H&P: No H&P completed within 30 days and has changed as indicated here:: 12/12/23 ASA Class (for procedural sedation): II
[2023-12-12] MEDS: BUPIVACAINE 0.25% (PF) 30 ML, EPINEPHrine 0.15 MG INJ (15:31)
--- NOTE | 2023-12-12 15:32 | PM.OP.1 ---
Operative Date/Time/Diagnoses Date of procedure: 12/12/23 Time of procedure: 15:32 Pre-op diagnosis: symptomatic R hydrosalpinx, undesired fertility, IUD removal/reinsertion due to expiration Post-op diagnosis: same Procedure & Clinicians Procedure: mirena IUD removal/replacement, diagnostic laparoscopy with bilateral salpingectomy Same procedure as scheduled: Yes Indications: symptomatic R hydrosalpinx undesired fertility LNG-IUD approaching expiration Surgeon: Adriana Arrieta Click Yes if Unassisted: No Anesthesia Type: General Operative Notes Findings: normal external female genitalia, perineum and anus parous cervix visually wnl, IUD strings noted at external os grossly congested pelvic vasculature, bilateral fallopian tubes visually wnl, noted R paratubal cyst vs lipoma Closure Type: primary Specimen(s): other (bilateral fallopian tubes ) Estimated Blood Loss (mL): 5 Blood products transfused: none Procedure in detail: Pt was taken to the operating room, transferred to OR table and anesthesia was induced with placement of ETT.? Pt had her legs placed in Neville stirrups and an exam under anesthesia was performed. The patient was prepped and draped in a sterile fashion.? A time out was performed.? The bladder was emptied via straight catheter in sterile fashion.? A sterile speculum was inserted into the vagina.? The cervix was visualized and grasped anteriorly using a single tooth tenaculum. IUD strings noted at external os were grasped with ring forceps and under gentle traction IUD removed easily; visually inspected and noted to be intact. New Mirena IUD device obtained from office supply was then placed per pocket creaser instructions and strings trimmed to 3cm. A sponge stick was placed in the vagina for atraumatic uterine maniuplation. Gloves were changed and attention was then turned to the abdominal portion of the case. The skin below the umbilicus was infiltrated superficially with 1% lidocaine for local analgesia. A 5mm incision was made infraumbilically using the #11 blade and abdominal entry was achieved under direct visualization using the 5mm VisaPort trocar.? The abdomen was insufflated to 15mmHg.? Two lateral 5-mm ports were placed in a similar manner under direct visualization.? The uterus was anteverted and abdominal survey was noted with findings as noted above. The L fallopian tube was grasped and elevated. The Powerseal was used to dissect the fallopian tube away from the mesosalpinx followed by amputation at the level of the cornua. All dissection beds were noted to be hemostatic. Attention was then turned to the contralateral side where the same procedure was performed. Both specimens were removed intact via the lateral side port under direct visualization. Wound beds were again inspected and noted to be hemostatic. Abdominal insufflation was released and excess gas was allowed to escape with assistance of positive pressure ventilation per anesthesia. All ports were removed. Skin was closed with 4-0 monocryl in a subcuticular fashion followed by application of dermabond. All counts correct x2. Patient tolerated the procedure well and without difficulty, transported to PACU in stable condition. Complications: none Post-operative Condition: stable Disposition: PACU Plan for aftercare: dc to home, routine outpatient f/u in office as scheduled
[2023-12-12 15:42] VITALS: BP 143/97; PULSE 108; RESP 16; TEMP 36.5; O2SAT 94
[2023-12-12 15:47] VITALS: BP 127/87; PULSE 100; RESP 12; O2SAT 98
[2023-12-12] MEDS: OXYCODONE IR 5 MG TABLET PO (15:48)
[2023-12-12] MEDS: ONDANSETRON 4 MG/2 ML INJ IV (15:48)
[2023-12-12 15:52] VITALS: BP 128/83; PULSE 98; RESP 15; TEMP 36.5; O2SAT 98
[2023-12-12 16:00] VITALS: BP 132/85; PULSE 89; RESP 20; O2SAT 100
[2023-12-12 16:15] VITALS: BP 116/66; PULSE 77; RESP 20; O2SAT 100
== END 2023-12-12 16:25 | disposition home or self-care (01) ==
PROVIDERS: PCP Family Medicine; Referring Provider Obstetrics & Gynecology; Visit Provider Obstetrics & Gynecology
PROC: (CPT 58661; principal; 2023-12-12 15:15)
DX: N70.11 Chronic salpingitis (principal); Z30.2 Encounter for sterilization; Z30.433 Encounter for removal and reinsertion of intrauterine contraceptive device
CPT/HCPCS: 58661; 58301; 58300; J0171; J0330; J1100; J2250; J2405; J2704; J3010; J3490; J7298

== ENCOUNTER 2024-04-03 09:47 | Emergency (ER) | payer OTHER, SELFPAY ==
[2024-04-03] VITALS (16 sets, daily range): BP systolic 97–125; BP diastolic 51–65; PULSE 51–84; RESP 16–18; TEMP 36.8; O2SAT 91–100; BMI 24.3
[2024-04-03 11:25] LABS: Add Manual Diff / Slide Review NO; Basophils Absolute Auto 100 /uL (0-100); Eosinophils Absolute Auto 900 /uL (0-450); Eosinophils Percent Auto 10.2 % (2-4); Hematocrit 42.2 % (36-46); Hemoglobin 14.1 g/dL (12.0-16.0); Lymphocytes Absolute Auto 2200 /uL (1100-4500); Lymphocytes Percent Auto 24.1 % (25-40); Mean Corpuscular HGB Conc 33.4 % (30-36); Mean Corpuscular Volume 92.8 fL (80-100); Monocytes Absolute Auto 500 /uL (0-900); Monocytes Percent Auto 6.1 % (3-14); Neutrophils Absolute Auto 5300 /uL (1500-7000); Neutrophils Percent Auto 58.6 % (50-75); Platelet Count 241 X10^3/uL (150-400); Red Blood Cell Count 4.55 X10^6/uL (4.0-5.2); Red Cell Distribution Width 13.1 % (11.6-14.8)
[2024-04-03 11:32] LABS: Alanine Aminotransferase 22 IU/L (<35); Albumin 4.7 g/dL (3.5-5.0); Albumin Globulin Ratio 1.8 (1.0-2.8); Alkaline Phosphatase 68 U/L (38-126); Aspartate Aminotransferase 23 IU/L (14-36); BUN Creatinine Ratio 16.5 (6-22); Bilirubin Total 0.2 mg/dL (0.2-1.3); Blood Urea Nitrogen 15 mg/dL (7-17); Calcium 9.1 mg/dL (8.4-10.2); Carbon Dioxide 24 mmol/L (22-32); Chloride 108 mmol/L (98-107); Estimated Glomerular Filt Rate > 60 mL/min (>60); Globulin 2.6 g/dL (1.7-4.1); Glucose 90 mg/dL (70-100); HEMOLYSIS < 15 (0-50); Lipase 36 U/L (23-300); Sodium 140 mmol/L (137-145); Total Protein 7.3 g/dL (6.3-8.2)
--- NOTE | 2024-04-03 11:35 | ED_ITS ---
HPI - Abdominal Pain General Chief Complaint: Abdominal Pain Stated Complaint: GI issue/Migraine/poss gallbladder issue Time Seen by Provider: 04/03/24 11:33 Source: patient, RN notes reviewed and old records reviewed Mode of arrival: Ambulatory Limitations: no limitations History of Present Illness HPI narrative: 29-year-old female history of mood disorder, migraines, leukemia in remission who presents with complaint of abdominal discomfort for the past 3 days. Patient states Tuesday started to get nauseated had some vomiting and diarrhea had abdominal cramping particularly on the right side and radiating across. Patient states no fevers but had some chills. No chest pain or shortness breath. States symptoms has been persistent terms of pain. She states she has not had any vomiting since yesterday. Her diarrhea has also improved. No black or bloody stools reported. Patient denies flank pain. No dysuria urgency or frequency. No new vaginal bleeding or discharge. She notes she does have tubal ligation in December. Patient states she currently takes Risperdal 6 mg daily, trazodone 150 mg daily Topamax 100 mg, lithium 600 mg, Prozac 60 mg, clonazepam TID prn, states she has allergies to sulfa, vancomycin and penicillin. Surgeries include prior port placement and removal for leukemia, tubal ligation and treatment of hydrosalpinx. She does vape tobacco regularly, occasional alcohol, no recreational drugs. Related Data Home Medications Medication Instructions Recorded Confirmed clonazepam 1 mg tablet 1 mg PO 4XD PRN Anxiety 10/21/23 12/12/23 lamotrigine 100 mg tablet 50 mg PO BEDTIME 10/21/23 12/12/23 risperidone 2 mg tablet 4 mg PO ONCE PM 10/21/23 12/12/23 topiramate 50 mg tablet 100 mg PO BID 10/21/23 12/12/23 trazodone 50 mg tablet 50 - 150 mg PO ONCE PM PRN Pain 10/21/23 12/12/23 (Scale Score 4-6) rimegepant 75 mg disintegrating 75 mg PO PRN PRN Headache 12/12/23 12/12/23 tablet (Nurtec ODT) Previous Rx's Medication Instructions Recorded ibuprofen 800 mg tablet 800 mg PO Q8H #30 tabs 12/12/23 oxycodone 5 mg capsule 5 mg PO Q8H PRN pain #6 caps 12/12/23 oxycodone 5 mg capsule 5 mg PO Q8H PRN pain #6 caps 12/12/23 hydrocodone 5 mg-acetaminophen 325 1 tab PO Q6H PRN pain #7 tabs 04/03/24 mg tablet Allergies Allergy/AdvReac Type Severity Reaction Status Date / Time Penicillins Allergy Unknown Verified 10/21/23 08:58 Sulfa (Sulfonamide Allergy Unknown Verified 10/21/23 08:58 Antibiotics) vancomycin Allergy Unknown Verified 10/21/23 08:58 morphine AdvReac Unknown sensitivit Verified 12/12/23 14:04 y Review of Systems Review of Systems ROS Unobtainable: All systems reviewed & are unremarkable except as noted in HPI and below Patient History Medical History Pancreatitis Anxiety Request for sterilization 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 RESPIRATORY: Breath sounds equal bilaterally, no wheezes rales or rhonchi. ABDOMEN: Soft, positive for right upper quadrant tenderness. Normoactive bowel sounds all 4 quadrants. No guarding or rebound, rigidity, no mass : No CVA tenderness EXTREMITIES: Normal range of motion, no clubbing or edema. Neurovascularly intact NEUROLOGICAL: Cranial nerves II through XII grossly intact. Moving all extremities SKIN: Warm, dry, no petechiae, no rashes or lesions. Initial Vital Signs Initial Vital Signs: Vital Signs Temperature 98.2 F 04/03/24 09:53 Pulse Rate 84 04/03/24 09:53 Respiratory Rate 16 04/03/24 09:53 Blood Pressure 115/64 04/03/24 09:53 Pulse Oximetry 98 04/03/24 09:53 Oxygen Delivery Method Room Air 04/03/24 09:53 Course Orders Ordered: ED Orders 04/03/24 10:45 Test Urine Stat 04/03/24 11:10 Complete Blood Count AUTO DIFF Stat Comprehensive Metabolic Panel Stat Lipase Stat Raymond Stat 04/03/24 11:54 US abdomen limited Stat 04/03/24 12:33 CT abdomen pelvis w con Stat 04/03/24 14:25 EKG-12 Lead Stat 04/03/24 14:40 Raymond Stat Discontinued Medications Hydromorphone HCl (Hydromorphone 0.5 Mg Inj) 0.5 mg IV NOW ONE Stop: 04/03/24 13:00 Last Admin: 04/03/24 13:05 Dose: 0.5 mg Documented By: Sodium Chloride (Normal Saline 0.9%) 1,000 mls @ 1,000 mls/hr IV BOLUS ONE Stop: 04/03/24 13:31 Last Infusion: 04/03/24 14:05 Dose: Infused Documented By: Admin: 04/03/24 12:50 Dose: 1,000 mls/hr Documented By: Ketorolac Tromethamine (Ketorolac 30 Mg/Ml Vial) 15 mg IV NOW ONE Stop: 04/03/24 11:55 Last Admin: 04/03/24 12:10 Dose: 15 mg Documented By: Ondansetron HCl (Ondansetron 4 Mg/2 Ml Inj) 4 mg IV NOW PRN PRN Reason: Nausea And Vomiting Ondansetron HCl (Ondansetron 4 Mg Odt) 4 mg PO NOW PRN PRN Reason: Nausea And Vomiting Ondansetron HCl (Ondansetron 4 Mg/2 Ml Inj) 4 mg IV NOW ONE Stop: 04/03/24 11:55 Last Admin: 04/03/24 12:11 Dose: 4 mg Documented By: Vital Signs Vital signs: Vital Signs - 8 hr 04/03/24 10:51 04/03/24 10:52 04/03/24 10:52 Pulse Rate 72 69 Respiratory Rate Blood Pressure 110/59 L Pulse Oximetry 98 98 Oxygen Delivery Method 04/03/24 11:00 04/03/24 11:00 04/03/24 11:30 Pulse Rate 64 58 L Respiratory Rate 18 Blood Pressure 125/52 L 106/65 Pulse Oximetry 98 98 Oxygen Delivery Method Room Air 04/03/24 11:30 04/03/24 12:00 04/03/24 12:00 Pulse Rate 62 61 Respiratory Rate Blood Pressure 103/64 Pulse Oximetry 98 98 Oxygen Delivery Method 04/03/24 12:30 04/03/24 12:31 04/03/24 12:31 Pulse Rate 53 L 53 L Respiratory Rate Blood Pressure 108/58 L Pulse Oximetry 98 98 Oxygen Delivery Method 04/03/24 12:50 04/03/24 12:50 04/03/24 13:00 Pulse Rate 67 Respiratory Rate Blood Pressure 116/61 102/55 L Pulse Oximetry 91 Oxygen Delivery Method 04/03/24 13:00 04/03/24 13:30 04/03/24 13:30 Pulse Rate 54 L 62 Respiratory Rate Blood Pressure 100/51 L Pulse Oximetry 98 99 Oxygen Delivery Method 04/03/24 14:00 04/03/24 14:00 04/03/24 14:30 Pulse Rate 51 L Respiratory Rate 18 Blood Pressure 106/59 L 105/62 Pulse Oximetry 98 Oxygen Delivery Method Room Air 04/03/24 14:30 04/03/24 15:00 04/03/24 15:00 Pulse Rate 65 60 Respiratory Rate Blood Pressure 97/53 L Pulse Oximetry 98 98 Oxygen Delivery Method 04/03/24 15:30 04/03/24 15:30 04/03/24 16:00 Pulse Rate 54 L Respiratory Rate Blood Pressure 103/58 L 102/60 Pulse Oximetry 99 Oxygen Delivery Method 04/03/24 16:00 Pulse Rate 54 L Respiratory Rate 16 Blood Pressure Pulse Oximetry 100 Oxygen Delivery Method MDM - Abdominal Pain Lab Data 04/03/24 11:10 04/03/24 11:10 Labs: Lab Results 04/03/24 04/03/24 04/03/24 Range/Units 10:45 11:10 14:40 WBC 9.0 (4.5-11.0) X10^3/uL RBC 4.55 (4.0-5.2) X10^6/uL Hgb 14.1 (12.0-16.0) g/dL Hct 42.2 (36-46) % MCV 92.8 (80-100) fL MCH 31.0 (26-34) PG MCHC 33.4 (30-36) % RDW 13.1 (11.6-14.8) % Plt Count 241 (150-400) X10^3/uL Neut % (Auto) 58.6 (50-75) % Lymph % (Auto) 24.1 L (25-40) % [place] % (Auto) 6.1 (3-14) % Eos % (Auto) 10.2 H (2-4) % Baso % (Auto) 1.0 (0-2) % Neut # (Auto) 5300 (6926-6634) /uL Lymph # (Auto) 2200 (9888-5050) /uL Ector # (Auto) 500 (0-900) /uL Eos # (Auto) 900 H (0-450) /uL Baso # (Auto) 100 (0-100) /uL Sodium 140 (137-145) mmol/L Potassium 4.0 (3.4-5.1) mmol/L Chloride 108 H (98-107) mmol/L Carbon Dioxide 24 (22-32) mmol/L BUN 15 (7-17) mg/dL Creatinine 0.91 (0.52-1.04) mg/dL Estimated GFR > 60 (>60) mL/min BUN/Creatinine Ratio 16.5 (6-22) Glucose 90 (70-100) mg/dL Calcium 9.1 (8.4-10.2) mg/dL Total Bilirubin 0.2 (0.2-1.3) mg/dL AST 23 (14-36) IU/L ALT 22 (<35) IU/L Alkaline Phosphatase 68 (38-126) U/L Total Protein 7.3 (6.3-8.2) g/dL Albumin 4.7 (3.5-5.0) g/dL Globulin 2.6 (1.7-4.1) g/dL Albumin/Globulin Ratio 1.8 (1.0-2.8) Lipase 36 (23-300) U/L Urine Test Negative (Negative) Raymond 1.4 H 0.3 L (0.6-1.2) mmol/L Point of care testing: Urine Dip Bedside Urine Glucose Negative Bedside Urine Bilirubin - Negative Bedside Urine Ketone - Negative Urine Specific [place] 1.010 Bedside Urine Occult Blood - Negative Bedside Urine pH 7.5 Bedside Urine Protein - Negative Bedside Urine Urobilinogen - Negative Bedside Urine Nitrite - Negative Bedside Urine Leukocytes - Negative Esterase ECG Data Attestation: I personally reviewed and interpreted this ECG as follows: Interpretation: Sinus bradycardia rate of 53, AK 168 QRS is 76 QTC of 441. No acute ST changes. MDM Narrative Medical decision making narrative: 29 year old female with compalint of nausea vomiting and diarrhea which has since stopped but has a pad persistent right-sided abdominal pain. Patient is little bit more tender right upper quadrant in the left so started with the ultrasound shows no significant changes to gallbladder and appendix was not visualized patient's had abdominal labs but also had lithium level ordered as she was on this chronically. Point of care urine is negative. urine preg was negative. Labs show white count of 9 hemoglobin of 14 platelets of 241. Chloride 108 otherwise normal electrolytes BUN 15 creatinine 0.91 glucose 90, LFTs are negative. Lipase is 36. Raymond level ordered as patient takes it chronically, its elevated at 1.4 with no priors for comparison. Repeat level after fluids is 0.3 RUQ US is unremarkable of RUQ and appendix is not visualized. No free fluid. CT abd/pelvis: No acute abdominal process. Normal appendix. Cystic adenexa 1420: Spoke with poison control ?Rec's include repeat lithium level now initial was drawn at 1110.? Reassuing n/v as resolved.? Raymond level has normalized on repeat. Also asks for EKG. Patient received a 1L fluid bolus, Zofran, Toradol and narcotic pain medication. She is tolerating orals in the department without issue. Feels more comfortable after pain medications but still little bit crampy. Discussed findings with the patient she states no extra ingestions, she states she actually missed her lithium dose last night. She continues to feel improved at this time. Reviewed EKG and lithium level with poison control 1506 would recommend patient is able to tolerate orals and back to normal baseline can discharge home unless there was concern for self-harm. Suspect patient got a little bit dehydrated from her nausea vomiting diarrhea and caused her levels to elevate. My suspicion for self-harm is low. Discussed with patient she was still feeling a bit little bit crampy but otherwise feels improved. She states the 2nd pain medication was much more helpful. She follows with psychiatry we will have her follow up with them to have her levels rechecked. Glucose short course of pain medication she states she was antinausea medication at home. Discussed return precautions all questions answered. Discharge Plan Departure Patient Disposition: Home Clinical Impression: Abdominal pain Activity Restrictions/Additional Instructions: Follow up with your physician for recheck, your repeat lithium was appropriate. You can take your next regular dose tomorrow. Please follow up with your physician to have your levels rechecked. Continue to hydrate regularly. You can take [place] 1-2 tablets every 6 hours as needed for pain. This medication can make you sleepy do not drive, perform hazardous activities or make any major decisions while taking it. This medication will make you constipated please take a stool softener once to twice daily until stools are soft and regular. Prescription sent to [facility]. Please return for fevers, new or worsening abdominal, back or flank pain, vomiting, black or bloody stools, persistent diarrhea, lightheadedness or passing out, chest pain or shortness of breath or other new or concerning symptoms. Prescriptions: New hydrocodone-acetaminophen 5-325 mg tablet 1 tab PO Q6H PRN (Reason: pain) Qty: 7 0RF No Action topiramate 50 mg tablet 100 mg PO BID lamotrigine 100 mg tablet 50 mg PO BEDTIME risperidone 2 mg tablet 4 mg PO ONCE PM clonazepam 1 mg tablet 1 mg PO 4XD PRN (Reason: Anxiety) trazodone 50 mg tablet 50 - 150 mg PO ONCE PM PRN (Reason: Pain (Scale Score 4-6)) Nurtec ODT 75 mg tablet,disintegrating 75 mg PO PRN PRN (Reason: Headache) oxycodone 5 mg capsule 5 mg PO Q8H PRN (Reason: pain) Qty: 6 0RF ibuprofen 800 mg tablet 800 mg PO Q8H Qty: 30 0RF oxycodone 5 mg capsule 5 mg PO Q8H PRN (Reason: pain) Qty: 6 0RF Referrals: Bruno Mayfield DO [Primary Care Provider] - Stand Alone Forms: Patient Portal/API/Survey, Work Release Note
[2024-04-03 11:50] LABS: Pregnancy Test Urine Negative (Negative)
--- NOTE | 2024-04-03 11:54 | DI.US.S_ITS ---
PROCEDURE: US ABDOMEN LIMITED INDICATIONS: RUQ/RLQ PAIN TECHNIQUE: Real-time scanning was performed of the abdominal and retroperitoneal organs, with image documentation. COMPARISON: [facility], US, US ABDOMEN LIMITED, 04/12/2022, 18:41. FINDINGS: Liver: Liver is normal in size and homogeneous in echotexture. Gallbladder: No gallstones. No gallbladder wall thickening or pericholecystic fluid. No sonographic Lopez sign. Biliary ducts: Intrahepatic bile ducts are non-dilated. Extrahepatic bile duct caliber measures 4.2 mm. Normal is 6-7 mm or less in diameter, or 10 mm or less post-cholecystectomy. Pancreas: Visualized portions of the pancreas are sonographically normal. Miscellaneous: No free abdominal fluid. Appendix is not visualized. Right kidney is seen and show no hydronephrosis or solid appearing renal lesion. IMPRESSION: 1. Unremarkable ultrasound examination of right upper quadrant abdomen. 2. Appendix is not visualized. No free fluid is seen in right lower quadrant. Dictated by: Arsenio Olivares M.D. on 04/03/2024 at 13:08 Approved by: Arsenio Olivares M.D. on 04/03/2024 at 13:10
[2024-04-03] MEDS: KETOROLAC 30 MG/ML VIAL 15 MG IV (12:10)
[2024-04-03] MEDS: ONDANSETRON 4 MG/2 ML INJ IV (12:11)
[2024-04-03 12:25] LABS: Lithium 1.4 mmol/L (0.6-1.2)
--- NOTE | 2024-04-03 12:33 | DI.CT.S_ITS ---
PROCEDURE: CT ABDOMEN PELVIS W CON INDICATIONS: abd pain, right sided TECHNIQUE: After the administration of intravenous contrast, axial sections acquired from the lung bases to the pubic symphysis. Coronal and sagittal reformats were performed. For radiation dose reduction, the following was used: automated exposure control, adjustment of mA and/or kV according to patient size. COMPARISON: [facility], CT, CT ABDOMEN PELVIS W CON, 04/12/2022, 19:32. FINDINGS: Image quality: Diagnostic. Lower Chest: No significant findings. ABDOMEN: Liver: No solid mass. Gallbladder: No radiopaque gallstones or wall thickening. Biliary ducts: No biliary dilation. Pancreas: No ductal dilation. Spleen: Size is within normal limits. Adrenal Glands: No adrenal nodules. Kidneys and Ureters: No hydronephrosis. No solid mass. No complex renal cystic lesion which requires follow up. Stomach and Bowel: Normal colonic caliber, without significant wall thickening. Gas-filled noninflamed appendix. Peritoneum: No abnormal intraperitoneal fluid. No free air. Ventral Wall: No significant ventral hernia. Abdominal Nodes: No retroperitoneal or mesenteric adenopathy by size criteria. Vessels: Aorta and inferior vena cava are normal in size. PELVIS: Pelvic Organs: IUD. Cystic adnexae. Bladder: No bladder wall thickening, accounting for underdistention. Pelvic Nodes: No enlarged lymph nodes. Miscellaneous: No inguinal hernias are seen. Bones: No aggressive osseous abnormality. IMPRESSION: No acute abdominal process noted. Normal appendix. Cystic adnexae. Dictated by: Cortez Masterson M.D. on 04/03/2024 at 13:16 Approved by: Cortez Masterson M.D. on 04/03/2024 at 13:19
[2024-04-03] MEDS: SODIUM CHLORIDE 0.9% 1,000 ML 1000 ML IV (12:50)
--- NOTE | 2024-04-03 12:55 | PC.NURSE ---
Pt states that she is still painful. 11/14. Dr Escobar notified.
[2024-04-03] MEDS: HYDROMORPHONE 0.5 MG INJ IV (13:05)
--- NOTE | 2024-04-03 14:34 | EKG_ITS ---
[address] [address] Test Date: 2024-04-03 Pat Name: Jose Khan Department: [facility] Room: Gender: Female Manager Icu: lalit : 1995 Requested By: Order Number: [id number] Reading MD: Christ Curtis Measurements Intervals [place] Rate: 53 P: 45 NC: 168 QRS: 60 QRSD: 76 T: 58 QT: 470 QTc: 441 Interpretive Statements Sinus bradycardia Septal infarct , age undetermined Electronically Signed On 04-05-2024 20:02:47 PST by Christ Curtis
[2024-04-03 14:57] LABS: Lithium 0.3 mmol/L (0.6-1.2)
== END 2024-04-03 16:29 | disposition home or self-care (01) ==
PROVIDERS: Emergency Provider Emergency Medicine; PCP Family Medicine
DX: R10.9 Unspecified abdominal pain (principal); R11.2 Nausea with vomiting, unspecified; R19.7 Diarrhea, unspecified; Z88.2 Allergy status to sulfonamides; Z97.5 Presence of (intrauterine) contraceptive device; R00.1 Bradycardia, unspecified
CPT/HCPCS: 74177; 76705; 80053; 80178; 81003; 81025; 83690; 85025; 93005; 96361; 96374; 96375; 99283; 99284; J1171; J1885; J2405; Q9967

== ENCOUNTER 2024-04-23 05:50 | Emergency (ER) | payer OTHER, SELFPAY ==
[2024-04-23] VITALS (12 sets, daily range): BP systolic 113–148; BP diastolic 66–91; PULSE 46–83; RESP 16–19; TEMP 36.8; O2SAT 97–99; BMI 24.3
--- NOTE | 2024-04-23 06:25 | ED_ITS ---
HPI - Headache <Paul Fregoso MD - Last Filed: 04/23/24 15:22> General Chief Complaint: Headache Stated Complaint: sore throat, vomit, bodyaches, chills, migraine Time Seen by Provider: 04/23/24 05:55 Mode of arrival: Ambulatory History of Present Illness HPI Narrative: 29-year-old female complains of two days duratin generalized body aches, bitemporal headache, sore throat, nonbloody emesis, loose stools. Also feels chills, and subjective fevers. No injury or trauma or new activities. No photophobia or neck pain. No dysuria or frequency of urination. Denies shortness of breath but is having occasional cough. Related Data Home Medications Medication Instructions Recorded Confirmed clonazepam 1 mg tablet 1 mg PO 4XD PRN Anxiety 10/21/23 12/12/23 lamotrigine 100 mg tablet 50 mg PO BEDTIME 10/21/23 12/12/23 risperidone 2 mg tablet 4 mg PO ONCE PM 10/21/23 12/12/23 topiramate 50 mg tablet 100 mg PO BID 10/21/23 12/12/23 trazodone 50 mg tablet 50 - 150 mg PO ONCE PM PRN Pain 10/21/23 12/12/23 (Scale Score 4-6) rimegepant 75 mg disintegrating 75 mg PO PRN PRN Headache 12/12/23 12/12/23 tablet (Nurtec ODT) Previous Rx's Medication Instructions Recorded ibuprofen 800 mg tablet 800 mg PO Q8H #30 tabs 12/12/23 oxycodone 5 mg capsule 5 mg PO Q8H PRN pain #6 caps 12/12/23 oxycodone 5 mg capsule 5 mg PO Q8H PRN pain #6 caps 12/12/23 hydrocodone 5 mg-acetaminophen 325 1 tab PO Q6H PRN pain #7 tabs 04/03/24 mg tablet ondansetron 4 mg disintegrating 8 mg (2 x 4 mg) PO Q8HR 5 days #15 04/23/24 tablet tabs Allergies Allergy/AdvReac Type Severity Reaction Status Date / Time Penicillins Allergy Unknown Verified 10/21/23 08:58 Sulfa (Sulfonamide Allergy Unknown Verified 10/21/23 08:58 Antibiotics) vancomycin Allergy Unknown Verified 10/21/23 08:58 morphine AdvReac Unknown sensitivit Verified 12/12/23 14:04 y <Christ Win DO - Last Filed: 04/23/24 10:31> History of Present Illness HPI Narrative: 29-year-old female complains of 2 days body aches, bitemporal headache, sore throat, nonbloody emesis, loose stools. Also feels chills, and subjective fevers. No injury or trauma or new activities. No photophobia or neck pain. No dysuria or frequency of urination. Denies shortness of breath but is having occasional cough. 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 HEAD: Atraumatic. Normocephalic. EYES: Pupils equal round and reactive. Extraocular motions intact. No scleral icterus. No injection or drainage. ENT: Nose without bleeding, purulent drainage. Throat without erythema, tonsillar hypertrophy or exudate. Airway patent. NECK: Trachea midline. Non tender CARDIOVASCULAR: Regular rate and rhythm without murmurs, gallops, or rubs. RESPIRATORY: Clear to auscultation. Breath sounds equal bilaterally. No wheezes, rales, or rhonchi. GASTROINTESTINAL: Abdomen soft, non-tender, nondistended. EXTREMITIES: No edema or joint tenderness. BACK: Nontender without deformity or crepitance. No flank tenderness. NEURO: AOx3. Motor functions grossly nonfocal SKIN: No rash or erythema of visible areas Initial Vital Signs Initial Vital Signs: Vital Signs Pulse Rate 63 04/23/24 05:54 Blood Pressure 117/70 04/23/24 05:54 Pulse Oximetry 99 02/17/25 05:54 <Christ Win DO - Last Filed: 04/23/24 10:31> Initial Vital Signs Initial Vital Signs: Vital Signs Pulse Rate 63 04/23/24 05:54 Blood Pressure 117/70 04/23/24 05:54 Pulse Oximetry 99 04/23/24 05:54 Course <Paul Fregoso MD - Last Filed: 04/23/24 15:22> Orders Ordered: ED Orders 04/23/24 07:28 Covid-19 + FLU A/B + RSV - PCR Stat 04/23/24 08:18 CT abdomen pelvis w con Stat 04/23/24 09:00 US pelvic complete Stat Discontinued Medications Acetaminophen (Acetaminophen 325 Mg Tablet) 650 mg PO NOW ONE Stop: 04/23/24 07:38 Last Admin: 04/23/24 07:46 Dose: 650 mg Documented By: PRISCILLA Dexamethasone (Dexamethasone 10 Mg/Ml Vial) 10 mg IV NOW ONE Stop: 04/23/24 07:37 Last Admin: 04/23/24 07:46 Dose: 10 mg Documented By: PRISCILLA Diphenhydramine HCl (Diphenhydramine 50 Mg/Ml Vial) 25 mg IV NOW ONE Stop: 04/23/24 06:10 Last Admin: 04/23/24 06:29 Dose: 25 mg Documented By: SANDEEP Famotidine (Famotidine 20 Mg/2 Ml Vial) 20 mg IV NOW ONE Stop: 04/23/24 08:20 Last Admin: 04/23/24 08:57 Dose: 20 mg Documented By: PRISCILLA Sodium Chloride (Normal Saline 0.9%) 1,000 mls @ 1,000 mls/hr IV BOLUS ONE Stop: 04/23/24 07:27 Last Infusion: 04/23/24 10:32 Dose: Infused Documented By: Admin: 04/23/24 06:29 Dose: 1,000 mls/hr Documented By: SANDEEP Magnesium Sulfate (Magnesium Sulfate) 2 gm in 50 mls @ 150 mls/hr IV NOW ONE Stop: 04/23/24 08:40 Last Infusion: 04/23/24 09:13 Dose: Infused Documented By: PRISCILLA Co-signed By: Admin: 04/23/24 08:57 Dose: 150 mls/hr Documented By: PRISCILLA Co-signed By: RB Ketorolac Tromethamine (Ketorolac 30 Mg/Ml Vial) 15 mg IV NOW ONE Stop: 04/23/24 06:16 Last Admin: 04/23/24 06:29 Dose: 15 mg Documented By: LS Prochlorperazine (Prochlorperazine 10 Mg/2 Ml Vial) 10 mg IV NOW ONE Stop: 04/23/24 06:10 Last Admin: 04/23/24 06:29 Dose: 10 mg Documented By: LS Vital Signs Vital signs: Vital Signs - 8 hr 04/23/24 07:30 04/23/24 07:30 04/23/24 08:00 Pulse Rate 83 51 L Respiratory Rate Blood Pressure 148/91 H Pulse Oximetry 98 98 Oxygen Delivery Method 04/23/24 08:42 04/23/24 09:00 04/23/24 09:30 Pulse Rate 46 L 54 L 46 L Respiratory Rate Blood Pressure Pulse Oximetry 98 98 98 Oxygen Delivery Method 04/23/24 10:00 04/23/24 10:13 04/23/24 10:13 Pulse Rate 48 L 49 L 47 L Respiratory Rate 19 Blood Pressure 126/70 Pulse Oximetry 97 97 98 Oxygen Delivery Method Room Air 04/23/24 10:30 04/23/24 10:30 Pulse Rate 58 L 56 L Respiratory Rate 19 Blood Pressure 125/85 Pulse Oximetry 98 99 Oxygen Delivery Method Room Air <Christ Win DO - Last Filed: 04/23/24 10:31> Orders Ordered: ED Orders 04/23/24 07:28 Covid-19 + FLU A/B + RSV - PCR Stat 04/23/24 08:18 CT abdomen pelvis w con Stat 04/23/24 09:00 US pelvic complete Stat Discontinued Medications Acetaminophen (Acetaminophen 325 Mg Tablet) 650 mg PO NOW ONE Stop: 04/23/24 07:38 Last Admin: 04/23/24 07:46 Dose: 650 mg Documented By: PRISCILLA Dexamethasone (Dexamethasone 10 Mg/Ml Vial) 10 mg IV NOW ONE Stop: 04/23/24 07:37 Last Admin: 04/23/24 07:46 Dose: 10 mg Documented By: PRISCILLA Diphenhydramine HCl (Diphenhydramine 50 Mg/Ml Vial) 25 mg IV NOW ONE Stop: 04/23/24 06:10 Last Admin: 04/23/24 06:29 Dose: 25 mg Documented By: SANDEEP Famotidine (Famotidine 20 Mg/2 Ml Vial) 20 mg IV NOW ONE Stop: 04/23/24 08:20 Last Admin: 04/23/24 08:57 Dose: 20 mg Documented By: PRISCILLA Sodium Chloride (Normal Saline 0.9%) 1,000 mls @ 1,000 mls/hr IV BOLUS ONE Stop: 04/23/24 07:27 Last Infusion: 04/23/24 10:32 Dose: Infused Documented By: Admin: 04/23/24 06:29 Dose: 1,000 mls/hr Documented By: SANDEEP Magnesium Sulfate (Magnesium Sulfate) 2 gm in 50 mls @ 150 mls/hr IV NOW ONE Stop: 04/23/24 08:40 Last Infusion: 04/23/24 09:13 Dose: Infused Documented By: PRISCILLA Co-signed By: Admin: 04/23/24 08:57 Dose: 150 mls/hr Documented By: PRISCILLA Co-signed By: REESE Ketorolac Tromethamine (Ketorolac 30 Mg/Ml Vial) 15 mg IV NOW ONE Stop: 04/23/24 06:16 Last Admin: 04/23/24 06:29 Dose: 15 mg Documented By: SANDEEP Prochlorperazine (Prochlorperazine 10 Mg/2 Ml Vial) 10 mg IV NOW ONE Stop: 04/23/24 06:10 Last Admin: 04/23/24 06:29 Dose: 10 mg Documented By: SANDEEP Vital Signs Vital signs: Vital Signs - 8 hr 04/23/24 07:30 04/23/24 07:30 04/23/24 08:00 Pulse Rate 83 51 L Respiratory Rate Blood Pressure 148/91 H Pulse Oximetry 98 98 Oxygen Delivery Method 04/23/24 08:42 04/23/24 09:00 04/23/24 09:30 Pulse Rate 46 L 54 L 46 L Respiratory Rate Blood Pressure Pulse Oximetry 98 98 98 Oxygen Delivery Method 04/23/24 10:00 04/23/24 10:13 04/23/24 10:13 Pulse Rate 48 L 49 L 47 L Respiratory Rate 19 Blood Pressure 126/70 Pulse Oximetry 97 97 98 Oxygen Delivery Method Room Air 04/23/24 10:30 04/23/24 10:30 Pulse Rate 58 L 56 L Respiratory Rate 19 Blood Pressure 125/85 Pulse Oximetry 98 99 Oxygen Delivery Method Room Air MDM - Headache <Paul Fregoso MD - Last Filed: 04/23/24 15:22> Lab Data 04/23/24 06:05 04/23/24 06:05 Labs: Lab Results 04/23/24 04/23/24 Range/Units 06:05 07:28 WBC 11.7 H (4.5-11.0) X10^3/uL RBC 4.39 (4.0-5.2) X10^6/uL Hgb 13.4 (12.0-16.0) g/dL Hct 39.9 (36-46) % MCV 90.9 (80-100) fL MCH 30.6 (26-34) PG MCHC 33.6 (30-36) % RDW 12.8 (11.6-14.8) % Plt Count 242 (150-400) X10^3/uL Neut % (Auto) 64.4 (50-75) % Lymph % (Auto) 18.4 L (25-40) % [place] % (Auto) 6.0 (3-14) % Eos % (Auto) 9.9 H (2-4) % Baso % (Auto) 1.3 (0-2) % Neut # (Auto) 7500 H (9139-3066) /uL Lymph # (Auto) 2100 (4145-8204) /uL [place] # (Auto) 700 (0-900) /uL Eos # (Auto) 1200 H (0-450) /uL Baso # (Auto) 100 (0-100) /uL Sodium 137 (137-145) mmol/L Potassium 3.7 (3.4-5.1) mmol/L Chloride 102 (98-107) mmol/L Carbon Dioxide 27 (22-32) mmol/L BUN 10 (7-17) mg/dL Creatinine 0.82 (0.52-1.04) mg/dL Estimated GFR > 60 (>60) mL/min BUN/Creatinine Ratio 12.2 (6-22) Glucose 91 (70-100) mg/dL Lactate 0.9 (0.7-2.1) mmol/L Calcium 9.1 (8.4-10.2) mg/dL Magnesium 2.2 (1.6-2.3) mg/dL Total Bilirubin 0.3 (0.2-1.3) mg/dL AST 25 (14-36) IU/L ALT 24 (<35) IU/L Alkaline Phosphatase 65 (38-126) U/L Total Protein 7.1 (6.3-8.2) g/dL Albumin 4.5 (3.5-5.0) g/dL Globulin 2.6 (1.7-4.1) g/dL Albumin/Globulin Ratio 1.7 (1.0-2.8) Lipase 19 L (23-300) U/L HCG, Quant < 2.39 mIU/mL SARS-CoV-2 (PCR) Negative (Negative) Influenza A (RT-PCR) Flu a negative (NEGATIVE) Influenza B (RT-PCR) Flu b negative (NEGATIVE) RSV (PCR) Negative (Negative) Group A Strep (PCR) Negative (Negative) Urine Dip Bedside Urine Glucose Negative Bedside Urine Bilirubin - Negative Bedside Urine Ketone - Negative Urine Specific [place] 1.005 Bedside Urine Occult Blood - Negative Bedside Urine Protein - Negative Bedside Urine Urobilinogen +/- 1mg Bedside Urine Nitrite - Negative Bedside Urine Leukocytes - Negative Esterase MDM Narrative Medical decision making narrative: 29-year-old female with influenza like illness symptoms, also loose stools, muscle aches and bitemporal headache. No photophobia, no nuchal rigidity. Trial of headache cocktail IV Compazine/Benadryl, IV Toradol, IV fluid bolus. Labs pending including strep screen from triage, added COVID/flu/RSV swab. 0700, hCG negative, other labs pending. Assess for response to treatment. Signed out to oncoming ED shift physician Dr Win <Christ Win, - Last Filed: 04/23/24 10:31> Lab Data Labs: Lab Results 04/23/24 04/23/24 Range/Units 06:05 07:28 WBC 11.7 H (4.5-11.0) X10^3/uL RBC 4.39 (4.0-5.2) X10^6/uL Hgb 13.4 (12.0-16.0) g/dL Hct 39.9 (36-46) % MCV 90.9 (80-100) fL MCH 30.6 (26-34) PG MCHC 33.6 (30-36) % RDW 12.8 (11.6-14.8) % Plt Count 242 (150-400) X10^3/uL Neut % (Auto) 64.4 (50-75) % Lymph % (Auto) 18.4 L (25-40) % [place] % (Auto) 6.0 (3-14) % Eos % (Auto) 9.9 H (2-4) % Baso % (Auto) 1.3 (0-2) % Neut # (Auto) 7500 H (7068-3954) /uL Lymph # (Auto) 2100 (0851-8559) /uL [place] # (Auto) 700 (0-900) /uL Eos # (Auto) 1200 H (0-450) /uL Baso # (Auto) 100 (0-100) /uL Sodium 137 (137-145) mmol/L Potassium 3.7 (3.4-5.1) mmol/L Chloride 102 (98-107) mmol/L Carbon Dioxide 27 (22-32) mmol/L BUN 10 (7-17) mg/dL Creatinine 0.82 (0.52-1.04) mg/dL Estimated GFR > 60 (>60) mL/min BUN/Creatinine Ratio 12.2 (6-22) Glucose 91 (70-100) mg/dL Lactate 0.9 (0.7-2.1) mmol/L Calcium 9.1 (8.4-10.2) mg/dL Magnesium 2.2 (1.6-2.3) mg/dL Total Bilirubin 0.3 (0.2-1.3) mg/dL AST 25 (14-36) IU/L ALT 24 (<35) IU/L Alkaline Phosphatase 65 (38-126) U/L Total Protein 7.1 (6.3-8.2) g/dL Albumin 4.5 (3.5-5.0) g/dL Globulin 2.6 (1.7-4.1) g/dL Albumin/Globulin Ratio 1.7 (1.0-2.8) Lipase 19 L (23-300) U/L HCG, Quant < 2.39 mIU/mL SARS-CoV-2 (PCR) Negative (Negative) Influenza A (RT-PCR) Flu a negative (NEGATIVE) Influenza B (RT-PCR) Flu b negative (NEGATIVE) RSV (PCR) Negative (Negative) Group A Strep (PCR) Negative (Negative) Urine Dip Bedside Urine Glucose Negative Bedside Urine Bilirubin - Negative Bedside Urine Ketone - Negative Urine Specific [place] 1.005 Bedside Urine Occult Blood - Negative Bedside Urine Protein - Negative Bedside Urine Urobilinogen +/- 1mg Bedside Urine Nitrite - Negative Bedside Urine Leukocytes - Negative Esterase Imaging Data CT scan - abdomen/pelvis: Radiologist's Impression: [address] [address] [address] Scan Report Signed Patient: Jose Khan MR#: [id number] : 1995 Acct:[id number] Age/Sex: 29 / F Date of Service: 04/23/24 Loc: ED Accession Number: [id number] Procedure: CT abdomen pelvis w con Ordering Provider: Christ Win D.O. PROCEDURE: CT ABDOMEN PELVIS W CON INDICATIONS: abd pain TECHNIQUE: After the administration of intravenous contrast, axial sections acquired from the lung bases to the pubic symphysis. Coronal and sagittal reformats were performed. For radiation dose reduction, the following was used: automated exposure control, adjustment of mA and/or kV according to patient size. COMPARISON: [facility], CT, CT ABDOMEN PELVIS W CON, 04/03/2024, 12:35. FINDINGS: Image quality: Diagnostic. Lower Chest: No significant findings. ABDOMEN: Liver: No solid mass. Gallbladder: No radiopaque gallstones or wall thickening. Biliary ducts: No biliary dilation. Pancreas: No ductal dilation. Spleen: Size is within normal limits. Adrenal Glands: No adrenal nodules. Kidneys and Ureters: No hydronephrosis. 1.3 cm benign left angiomyolipoma. No complex renal cystic lesion which requires follow up. Stomach and Bowel: Normal colonic caliber, without significant wall thickening. Normal appendix. Peritoneum: No abnormal intraperitoneal fluid. No free air. Ventral Wall: No significant ventral hernia. Abdominal Nodes: No retroperitoneal or mesenteric adenopathy by size criteria. Vessels: Aorta and inferior vena cava are normal in size. PELVIS: Pelvic Organs: Slightly abnormal angulation of the left IUD arm. Bladder: No bladder wall thickening, accounting for underdistention. Pelvic Nodes: No enlarged lymph nodes. Miscellaneous: No inguinal hernias are seen. Bones: No aggressive osseous abnormality. IMPRESSION: Slightly abnormal angulation of the left IUD arm, which may indicate myometrial placement. Correlate with pelvic ultrasound in the setting of continued lower abdominal pain. Normal appendix. Normal gallbladder. No nephrolithiasis or hydronephrosis. Benign left renal angiomyolipoma measuring 1.3 cm. No further follow-up is indicated. US - LOAN UNDERWRITER: Radiologist's Impression: [address] [address] Ultrasound Report Signed Patient: Jose Khan MR#: [id number] : 1995 Acct:[id number] Age/Sex: 29 / F Date of Service: 04/23/24 Loc: ED Accession Number: [id number] Procedure: US pelvic complete Ordering Provider: Christ Win D.O. PROCEDURE: US PELVIC COMPLETE INDICATIONS: CT scan showing possible myometrial IUD placement TECHNIQUE: Real-time scanning was performed of the pelvic organs, with image documentation. Additional endovaginal scanning was necessary due to incomplete visualization of the adnexal and endometrial structures by transabdominal scanning. COMPARISON: [facility], CT, CT ABDOMEN PELVIS W CON, 04/23/2024, 8:29. FINDINGS: Uterus: Uterus is retroverted and normal in size at 7.3 x 5.0 x 4.2 cm. The myometrium is homogeneous. The endometrium measures 4 mm combined thickness. IUD in satisfactory position. Ovaries: The right ovary measures 3.5 x 2.3 x 1.9 cm, with a calculated ovarian volume of 8.0 cc. The left ovary measures 3.5 x 2.9 x 1.8 cm, with a calculated ovarian volume of 9.6 cc. The ovaries have a normal sonographic appearance. Less than 12 follicles can be seen in each ovary. No adnexal masses are seen. There is intra-ovarian flow bilaterally by duplex. Other: No pathologic free abdominal or pelvic fluid. IMPRESSION: 1. IUD in satisfactory position. 2. Retroverted uterus. MDM Narrative Medical decision making narrative: 29-year-old female with influenza like illness symptoms, also loose stools, muscle aches and bitemporal headache. No photophobia, no nuchal rigidity. Trial of headache cocktail IV Compazine/Benadryl, IV Toradol, IV fluid bolus. Labs pending including strep screen from triage, added COVID/flu/RSV swab. 0700, hCG negative, other labs pending. Assess for response to treatment. Signed out to [facility] ED shift physician Dr Win 2.17.25 @ 0700 (Dr. Win): Patient signed out to me by night time provider, patient came in complaining of flu-like symptoms 0820: Patient re-evaluated by me, stating that she is now experiencing abdominal pain/cramping, nausea, stating that her headache has not improved therefore will add additional medication for this, Decadron, Tylenol, magnesium. Will also obtain lab work urinalysis and CT scan of the abdomen given the fact that patient with negative viral panel negative strep test and patient with concerns of her abdominal pain. 1030: Patient re-evaluated no Stanley's time has had significant improvement after administration of medication here, CT ultrasound unremarkable for any acute finding. Patient states that she has a known history of ovarian cysts. Patient's symptoms more likely viral in nature, will be sent home with symptomatic treatment informed to follow up with primary care strict return precautions were given she verbalized understanding of this and agrees to being discharged home with outpatient follow up Discharge Plan Departure Patient Disposition: Home Clinical Impression: Acute viral syndrome Activity Restrictions/Additional Instructions: Please follow up with your primary care doctor Please read the discharge instructions sheet carefully and bring all papers to all doctor follow-up visits, as it may contain information that your doctor may want to see. Disease processes change and evolve, if your symptoms worsen or if you develop any new symptoms that are concerning to you please return for evaluation. Your evaluation today does not show any evidence of any life- threatening/serious illnesses requiring admission to the hospital or surgery. Please follow-up with your doctor for re-evaluation in approximately 1 day. Seek immediate medical attention for any worrisome symptoms. *If you do not have a primary care provider please contact the [facility] Resource line at [phone]. They will ask some questions about your medical history and help get you set up with a doctor in the community. Prescriptions: New ondansetron 4 mg tablet,disintegrating 8 mg PO Q8HR 5 Days Qty: 15 0RF No Action topiramate 50 mg tablet 100 mg PO BID lamotrigine 100 mg tablet 50 mg PO BEDTIME risperidone 2 mg tablet 4 mg PO ONCE PM clonazepam 1 mg tablet 1 mg PO 4XD PRN (Reason: Anxiety) trazodone 50 mg tablet 50 - 150 mg PO ONCE PM PRN (Reason: Pain (Scale Score 4-6)) Nurtec ODT 75 mg tablet,disintegrating 75 mg PO PRN PRN (Reason: Headache) oxycodone 5 mg capsule 5 mg PO Q8H PRN (Reason: pain) Qty: 6 0RF ibuprofen 800 mg tablet 800 mg PO Q8H Qty: 30 0RF oxycodone 5 mg capsule 5 mg PO Q8H PRN (Reason: pain) Qty: 6 0RF hydrocodone-acetaminophen 5-325 mg tablet 1 tab PO Q6H PRN (Reason: pain) Qty: 7 0RF Referrals: Bruno Mayfield DO [Primary Care Provider] - Stand Alone Forms: Patient Portal/API/Survey, Work Release Note
[2024-04-23] MEDS: PROCHLORPERAZINE 10 MG/2 ML VIAL IV (06:29)
[2024-04-23] MEDS: diphenhydrAMINE 50 MG/ML VIAL 25 MG IV (06:29)
[2024-04-23] MEDS: SODIUM CHLORIDE 0.9% 1,000 ML 1000 ML IV (06:29)
[2024-04-23] MEDS: KETOROLAC 30 MG/ML VIAL 15 MG IV (06:29)
[2024-04-23 06:43] LABS: HCG Quantitative /Beta subunit < 2.39 mIU/mL
[2024-04-23] MEDS: ACETAMINOPHEN 325 MG TABLET 650 MG PO (07:46)
[2024-04-23] MEDS: DEXAMETHASONE 10 MG/ML VIAL IV (07:46)
[2024-04-23 08:05] LABS: Strep Grp A by PCR Rapid Negative (Negative)
[2024-04-23 08:11] LABS: Influenza A - CEPHEID Flu A NEGATIVE (NEGATIVE); Influenza B - CEPHEID Flu B NEGATIVE (NEGATIVE); Respiratory Syncytial Virus Negative (Negative)
[2024-04-23 08:12] LABS: COVID-19 CEPHEID 4-PLEX PCR Negative (Negative)
--- NOTE | 2024-04-23 08:18 | DI.CT.S_ITS ---
PROCEDURE: CT ABDOMEN PELVIS W CON INDICATIONS: abd pain TECHNIQUE: After the administration of intravenous contrast, axial sections acquired from the lung bases to the pubic symphysis. Coronal and sagittal reformats were performed. For radiation dose reduction, the following was used: automated exposure control, adjustment of mA and/or kV according to patient size. COMPARISON: [facility], CT, CT ABDOMEN PELVIS W CON, 04/03/2024, 12:35. FINDINGS: Image quality: Diagnostic. Lower Chest: No significant findings. ABDOMEN: Liver: No solid mass. Gallbladder: No radiopaque gallstones or wall thickening. Biliary ducts: No biliary dilation. Pancreas: No ductal dilation. Spleen: Size is within normal limits. Adrenal Glands: No adrenal nodules. Kidneys and Ureters: No hydronephrosis. 1.3 cm benign left angiomyolipoma. No complex renal cystic lesion which requires follow up. Stomach and Bowel: Normal colonic caliber, without significant wall thickening. Normal appendix. Peritoneum: No abnormal intraperitoneal fluid. No free air. Ventral Wall: No significant ventral hernia. Abdominal Nodes: No retroperitoneal or mesenteric adenopathy by size criteria. Vessels: Aorta and inferior vena cava are normal in size. PELVIS: Pelvic Organs: Slightly abnormal angulation of the left IUD arm. Bladder: No bladder wall thickening, accounting for underdistention. Pelvic Nodes: No enlarged lymph nodes. Miscellaneous: No inguinal hernias are seen. Bones: No aggressive osseous abnormality. IMPRESSION: Slightly abnormal angulation of the left IUD arm, which may indicate myometrial placement. Correlate with pelvic ultrasound in the setting of continued lower abdominal pain. Normal appendix. Normal gallbladder. No nephrolithiasis or hydronephrosis. Benign left renal angiomyolipoma measuring 1.3 cm. No further follow-up is indicated. Dictated by: Donavan Spears M.D. on 04/23/2024 at 8:53 Approved by: Donavan Spears M.D. on 04/23/2024 at 8:56
[2024-04-23 08:31] LABS: Add Manual Diff / Slide Review NO; Basophils Absolute Auto 100 /uL (0-100); Basophils Percent Auto 1.3 % (0-2); Eosinophils Absolute Auto 1200 /uL (0-450); Eosinophils Percent Auto 9.9 % (2-4); Hematocrit 39.9 % (36-46); Hemoglobin 13.4 g/dL (12.0-16.0); Lymphocytes Absolute Auto 2100 /uL (1100-4500); Lymphocytes Percent Auto 18.4 % (25-40); Mean Corpuscular HGB Conc 33.6 % (30-36); Mean Corpuscular Hemoglobin 30.6 PG (26-34); Mean Corpuscular Volume 90.9 fL (80-100); Monocytes Absolute Auto 700 /uL (0-900); Neutrophils Absolute Auto 7500 /uL (1500-7000); Neutrophils Percent Auto 64.4 % (50-75); Platelet Count 242 X10^3/uL (150-400); Red Blood Cell Count 4.39 X10^6/uL (4.0-5.2); Red Cell Distribution Width 12.8 % (11.6-14.8); White Blood Cell Count 11.7 X10^3/uL (4.5-11.0)
[2024-04-23 08:36] LABS: Lactate (Lactic Acid) 0.9 mmol/L (0.7-2.1)
[2024-04-23 08:37] LABS: Alanine Aminotransferase 24 IU/L (<35); Albumin 4.5 g/dL (3.5-5.0); Albumin Globulin Ratio 1.7 (1.0-2.8); Alkaline Phosphatase 65 U/L (38-126); Aspartate Aminotransferase 25 IU/L (14-36); BUN Creatinine Ratio 12.2 (6-22); Bilirubin Total 0.3 mg/dL (0.2-1.3); Blood Urea Nitrogen 10 mg/dL (7-17); Calcium 9.1 mg/dL (8.4-10.2); Carbon Dioxide 27 mmol/L (22-32); Chloride 102 mmol/L (98-107); Estimated Glomerular Filt Rate > 60 mL/min (>60); Globulin 2.6 g/dL (1.7-4.1); Glucose 91 mg/dL (70-100); HEMOLYSIS 35 (0-50); Lipase 19 U/L (23-300); Magnesium 2.2 mg/dL (1.6-2.3); Potassium 3.7 mmol/L (3.4-5.1); Sodium 137 mmol/L (137-145); Total Protein 7.1 g/dL (6.3-8.2)
[2024-04-23] MEDS: MAGNESIUM SULFATE 2 GM/50 ML PIGGYBACK IV (08:57)
[2024-04-23] MEDS: FAMOTIDINE 20 MG/2 ML VIAL IV (08:57)
--- NOTE | 2024-04-23 09:00 | DI.US.S_ITS ---
PROCEDURE: US PELVIC COMPLETE INDICATIONS: CT scan showing possible myometrial IUD placement TECHNIQUE: Real-time scanning was performed of the pelvic organs, with image documentation. Additional endovaginal scanning was necessary due to incomplete visualization of the adnexal and endometrial structures by transabdominal scanning. COMPARISON: [facility], CT, CT ABDOMEN PELVIS W CON, 04/23/2024, 8:29. FINDINGS: Uterus: Uterus is retroverted and normal in size at 7.3 x 5.0 x 4.2 cm. The myometrium is homogeneous. The endometrium measures 4 mm combined thickness. IUD in satisfactory position. Ovaries: The right ovary measures 3.5 x 2.3 x 1.9 cm, with a calculated ovarian volume of 8.0 cc. The left ovary measures 3.5 x 2.9 x 1.8 cm, with a calculated ovarian volume of 9.6 cc. The ovaries have a normal sonographic appearance. Less than 12 follicles can be seen in each ovary. No adnexal masses are seen. There is intra-ovarian flow bilaterally by duplex. Other: No pathologic free abdominal or pelvic fluid. IMPRESSION: 1. IUD in satisfactory position. 2. Retroverted uterus. We strive to produce accurate, complete, and clear reports of imaging services. To assist us in improving patient care, this report was composed using standard report templates and voice recognition software. Therefore, it may contain abnormal punctuation, insertions and/or omissions. Occasional wrong-word or sound-alike substitutions may occur. Though we review the report and make efforts to correct it, we do recommend that the report be read carefully in proper context to recognize any text inaccuracies. Dictated by: Cortez Masterson M.D. on 04/23/2024 at 10:02 Approved by: Cortez Masterson M.D. on 04/23/2024 at 10:09
--- NOTE | 2024-04-23 09:17 | PC.NURSE ---
US in room with pt . Appears in NAD.
--- NOTE | 2024-04-23 10:22 | PC.NURSE ---
Pt up to BR, Urine collected. Urine is nearly clear and has SG of 1.005. Pt reports that she has had no change in THOMAS. MD notified of pain and SG.
== END 2024-04-23 10:53 | disposition home or self-care (01) ==
PROVIDERS: Emergency Medicine; Emergency Provider Student in an Organized Health Care Education/Training Program; PCP Family Medicine
DX: B34.9 Viral infection, unspecified (principal); R51.9 Headache, unspecified; R11.10 Vomiting, unspecified; R50.9 Fever, unspecified; Z88.0 Allergy status to penicillin; Z88.2 Allergy status to sulfonamides; Z97.5 Presence of (intrauterine) contraceptive device
CPT/HCPCS: 0241U; 74177; 76830; 76856; 80053; 81003; 83605; 83690; 83735; 84702; 85025; 87651; 93975; 96361; 96365; 96375; 99284; J0780; J1100; J1200; J1885; J3475; Q9967

== ENCOUNTER 2024-04-28 08:57 | Emergency (ER) | payer OTHER, SELFPAY ==
[2024-04-28 09:10] VITALS: BP 111/61; PULSE 99; RESP 18; TEMP 36.9; O2SAT 98; BMI 24.3
== END 2024-04-28 10:02 | disposition left against medical advice (07) ==
PROVIDERS: Emergency Provider Emergency Medicine; PCP Family Medicine
DX: J02.9 Acute pharyngitis, unspecified (principal)
CPT/HCPCS: 99281

== ENCOUNTER 2024-05-15 18:18 | Emergency (ER) | payer OTHER, SELFPAY ==
[2024-05-15] VITALS (7 sets, daily range): BP systolic 105–123; BP diastolic 63–89; PULSE 51–76; RESP 16–24; TEMP 36.6; O2SAT 98–99; BMI 24.3
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
[2024-05-15] MEDS: KETOROLAC 30 MG/ML VIAL IM (20:29)
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
[2024-05-15] MEDS: ONDANSETRON 4 MG ODT SL (21:41)
[2024-05-15] MEDS: diazePAM 5 MG TABLET PO (21:42)
== END 2024-05-15 21:46 | disposition home or self-care (01) ==
PROVIDERS: Emergency Provider Emergency Medicine; PCP Family Medicine
DX: S06.0X0A Concussion without loss of consciousness, initial encounter (principal); S16.1XXA Strain of muscle, fascia and tendon at neck level, initial encounter; W22.10XA Striking against or struck by unspecified automobile airbag, initial encounter; R51.9 Headache, unspecified; R20.2 Paresthesia of skin; Z72.0 Tobacco use; V89.2XXA Person injured in unspecified motor-vehicle accident, traffic, initial encounter
CPT/HCPCS: 70450; 72125; 96372; 99284; J1885